=== PATIENT | female | born 1945 | race Caucasian/White ===

== ENCOUNTER → 2016-05-11 | Outpatient (CLI) | payer OTHER ==
[2015-05-22 12:56] VITALS: BP 115/63; PULSE 76
[~2016-05-11] MED LIST: AMLO5TAB4 PO; ANAS1TAB6 PO; BACL10TA PO; CITA40TA4 PO; CLX40 PO; CMD/25 PO; NITR100C41 PO; ONDA4TAB10 SL; PRLSR20 PO
[2016-05-11 13:02] VITALS: BP 132/72; PULSE 76; TEMP 37.1; O2SAT 99
--- NOTE | 2016-05-11 13:59 | Radiation Oncology Follow-Up ---
Radiation Oncology Follow-Up Date of Visit May 11, 2016. 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 The patient had undergone a mammography earlier this year and it was found to be abnormal back in April. The patient was seen by Dr. Peralta and evaluated. Needle cytology and core biopsy before had rendered a diagnosis of adenocarcinoma of the breast. She was taken to the operating room on July 02 and underwent lumpectomy and sentinel node procedure. The lumpectomy revealed a ductal invasive carcinoma that was 1.3 cm in maximal dimension. The tumor was low grade. The patient's tumor was strongly ER and UT positive. She was Her2/krzysztof equivocal initially and negative by FISH. Three sentinel lymph nodes were recovered, none of which were involved with tumor. She was pathologically staged T1cN0 stage I breast cancer. She was seen by medical oncology. We discussed hormonal therapy with the patient and have subsequently referred her here for her completion radiation. The patient understands her diagnosis and is happy with breast conserving therapy. She underwent radiation therapy utilizing hypo-fractionation. This was completed 10/02/2014 she received 5000 cGy. Interim History She had been on anastrozole. She made the decision to stop the medication on her own. She felt that it was attributing to her joint pain. She has a known history of degenerative disc disease. She has chronic lower back pain. She has hip pain. She was receiving physical therapy. She did not feel this was helping so she stopped going to physical therapy. She was unsure as to how long ago she stopped the medication. She had seen Dr. Blake in December and at that time was still on the medication. She is up-to-date on mammography. We reviewed that it was recommended that she have a bilateral screening mammogram in June. She was not sure as to whether the mammogram was currently scheduled. She's noticed no changes to her breast. Denies any pain or tenderness she has noted no masses. She's had no change of the axilla no swelling of her arm. Allergies Coded Allergies: Ketorolac (Verified Allergy, Severe, SOB, FACIAL SWELLING, 08/26/15) NSAIDs (Verified Allergy, Severe, swelling, 08/26/15) Sertraline (Verified Allergy, Intermediate, blister, 08/26/15) Tromethamine (Verified Allergy, Intermediate, HIVES, 08/26/15) Aspirin (Verified Allergy, Mild, 08/26/15) Codeine (Verified Allergy, Mild, 08/26/15) Diazepam (Verified Allergy, Mild, 08/26/15) Levofloxacin (Verified Allergy, Unknown, Unknown, 08/26/15) Morphine and Related (Verified Allergy, Unknown, Unknown, 08/26/15) Penicillins (Verified Allergy, Unknown, 08/26/15) Tramadol (Verified Allergy, Unknown, ABDOMINAL PAIN, 08/26/15) Acetaminophen (Unverified Adverse Reaction, Mild, 0, 08/26/15) hypotension, nausea Hydrocodone (Unverified Adverse Reaction, Mild, 0, 08/26/15) hypotension, nausea Home Medications Scheduled Amlodipine Besylate (Norvasc), 5 MG PO DAILY Baclofen (Lioresal), 10 MG PO BID Citalopram (Citalopram Hydrobromide), 20 MG PO DAILY Warfarin Sod (Coumadin), 5 MG PO WK Warfarin Sod (Coumadin), 2.5 MG PO 6XWK Review of Systems Gastrointestinal: Symptoms: WNL Oral: Symptoms: No Problems Other Oral Symptoms: Dysphagia Respiratory: Symptoms: WNL, Dry Cough Respiratory Comments: Has cough due to allergies Other Respiratory: Dry cough every once in awhile; Urinary: Symptoms: WNL Comments: nocturia 3-4-times Skin: Symptoms: No Problems Other Skin Symptoms: palm of left hand has some red streaks on it, and hand is getting stiff Breast: Right Upper Arm Measurement: 31.0 Right Mid Arm Measurement: 24.0 Right Wrist Measurement: 15.3 Left Upper Arm Measurement: 29.5 Left Mid Arm Measurement: 23.0 Left Wrist Measurement: 15.3 Arm Dominence: Right Patient Cosmetic Evaluation: Excellent Staff Cosmetic Evalaluation: Excellent Physical Exam Vital Signs Date Time Temp Pulse Resp B/P Pulse Ox O2 Delivery O2 Flow Rate FiO2 05/11/16 13:02 37.1 76 20 132/72 99 Pain: Pain Onset: last week Pain Duration: gets worse at times with bending then going to a standing position Side: Bilateral Pain Location: Back Patient Pain Scale: 0 - 10 Initial Pain Intensity: 10.0 Pain Description: Sharp Additional Comments: " goes from upper back all the way down to lower back " Fatigue: None General Appearance: no apparent distress Eyes: normal inspection, EOMI ENT: normal ENT inspection, hearing grossly normal Neck: no adenopathy Respiratory/Chest: lungs clear, no respiratory distress, no accessory muscle use Breast: Breast examination reveals well-healed incisions of the right breast. There are no masses or tenderness and no axillary adenopathy. Using the [place] score cosmesis she has an excellent outcome. There are no skin retractions or nipple changes. The left breast showed no masses or tenderness and no axillary adenopathy. Cardiovascular: regular rate, rhythm, no gallop, no murmur Abdomen: non tender, soft Neurologic/Psychiatric: no motor/sensory deficits, alert, normal mood/affect Skin: warm/dry Lymphatic: no adenopathy Additional Studies She had a mammogram 01/05/2016. This was a right breast mammogram. Impression : Benign, no evidence of malignancy. Follow-up screening mammogram of both breasts is suggested in 6 months. BI-RADS Category 2 Assessment & Plan Plan: Her schedule was checked and she did not have a mammogram scheduled. Bilateral screening mammography was scheduled for the third week of June. She' ll continue regular follow-up with Dr. Blake. Continue follow-up with her primary care provider. She made the decision to discontinue the anastrozole. She can discuss that with Dr. Blake at her next visit. We asked her to return to our office in 1 year. She may call if she has any questions or concerns. Total Time In Follow-Up I spent 20 minutes speaking to the patient and performing examination. I spent 10 minutes reviewing her for information in completing this note. Copy To Oneil Tello III, M.D.; Tray Blake M.D.
== END | disposition home or self-care (01) ==
LOC: C.ONC 12:06
PROVIDERS: ATTEND Radiology Radiation Oncology
DX: Z08 Encounter for follow-up examination after completed treatment for malignant neoplasm (principal); Z92.3 Personal history of irradiation; Z85.3 Personal history of malignant neoplasm of breast

== ENCOUNTER 2017-01-05 08:40 | Emergency (ER) | payer OTHER ==
[~2017-01-05] VITALS: Ht 162.6 cm; Wt 65.5 kg
[~2017-01-05 08:40] MED LIST changes: -ANAS1TAB6 PO; -CLX40 PO; -NITR100C41 PO; -ONDA4TAB10 SL; -PRLSR20 PO
[2017-01-05 09:04] VITALS: TEMP 36.6; Ht 162.6 cm; Wt 65.5 kg
[2017-01-05 09:34] LABS: URINE APPEARANCE CLEAR (CLEAR); URINE BILIRUBIN NEG (NEG); URINE COLOR YELLOW; URINE EPITHELIAL CELL AUTO >30 /lpf (0-5); URINE NITRITE NEG (NEG); URINE PH 8.5 (4.5-7.5); URINE SPECIFIC GRAVITY 1.009 (1.000-1.030); UROBILINOGEN NEG (NEG); ZZUR CULT IF INDIC CLEAN CATCH NO
[2017-01-05 09:35] LABS: MANUAL MICROSCOPIC REQUIRED? NO; REVIEW REQ? NO
[2017-01-05 09:48] LABS: HEMATOCRIT 38.9 % (37-47); MEAN CELL VOLUME 87.4 fL (80-100); MEAN CORPUSCULAR HEMOGLOBIN 29.2 pg (25-34); MEAN CORPUSCULAR HGB CONC 33.4 g/dl (32-36); MEAN PLATELET VOLUME 10.6 fL (7.4-10.4); PLATELET COUNT 240 K/uL (130-400); RED BLOOD COUNT 4.45 M/uL (4.2-5.4); WHITE BLOOD COUNT 4.57 K/uL (4.8-10.8)
[2017-01-05 10:04] LABS: BUN/CREATININE RATIO 10.3 (10-20); CALCIUM 8.8 mg/dl (8.5-10.1); CREATININE 0.65 mg/dl (0.60-1.20); POTASSIUM 3.8 mmol/L (3.5-5.1)
[2017-01-05] MEDS ORDERED: ONDANSETRON INJ 2 MG/ML 2 ML VIAL IV STA (10:16)
[2017-01-05] MEDS ORDERED: FENTANYL CITRATE INJ 50 MCG/1 ML 2 ML VIAL IV ONE (10:30)
[2017-01-05 10:31] LABS: ALKALINE PHOSPHATASE 76 U/L (45-117); ALT/SGPT 15 U/L (12-78); AST/SGOT 18 U/L (15-37)
--- NOTE | 2017-01-05 10:37 | EMERGENCY ROOM VISIT NOTE ---
History Report prepared by Kelly: Rosaura Moore Under the Supervision of: Dr. En Knight M.D. First contact with patient: 09:31 Chief Complaint: FLANK PAIN Stated Complaint: BACK PAIN, STOMACH PAIN History of Present Illness The patient is a 71 year old white female with a past medical history of hypertension, factor V Leiden, breast cancer who presents to the ED with a cc of persistent sharp aching lower back pain beginning 3-4 days ago. Positive abdominal pain, dysuria, nausea, fever, chills, knee pain. Negative hematuria, drainage, vomiting, chest pain, SOB, unintended weight loss. Patient denies fall , trauma, change in activity, heavy lifting. No alcohol, tobacco, drug use. No sick contacts. She had a normal BM yesterday. Source of History: patient Onset: 3-4 days ago Position: back (lower) Quality: ache, sharp Timing: other (persistent) Associated Symptoms: + fevers, + chills, + nausea, + abdominal pain, + urinary symptoms, No chest pain, No SOB, No vomiting Review of Systems See HPI for pertinent positives and negatives. A total of ten systems were reviewed and were otherwise negative. Past Medical & Surgical Medical Problems: (1) Breast cancer (2) Chronic obstructive lung disease (3) COPD (chronic obstructive pulmonary disease) (4) CVA (cerebral vascular accident) (5) Factor V Leiden (6) Gastroesophageal reflux disease (7) History of pulmonary embolism (8) History of TIA (transient ischemic attack) (9) HTN (hypertension) (10) Migraine (11) PRIMARY HYPERCOAGULABLE STATE (12) Pulmonary embolism (13) Scoliosis Surgical Problems: (1) Status post cataract extraction (2) Status post cholecystectomy (3) Status post tubal ligation Family History Cancer Gallbladder disease Hypertension Lung disease Social History Smoking Status: Former Smoker Alcohol Use: none Drug Use: none Marital Status: Housing Status: lives with family Occupation Status: retired Current/Historical Medications Scheduled Amlodipine Besylate (Norvasc), 5 MG PO QAM Citalopram (Citalopram Hydrobromide), 20 MG PO QAM Nitrofurantoin Macrocrystal (Nitrofurantoin), 1 TAB PO BID Ondasetron Odt (Zofran Odt), 4 MG SL Q6H Warfarin Sod (Coumadin), 5 MG PO WK Warfarin Sod (Coumadin), 2.5 MG PO 6XWK Scheduled PRN Baclofen (Lioresal), 10 MG PO BID PRN for Muscle Spasms Allergies Coded Allergies: Ketorolac (Verified Allergy, Severe, SOB, FACIAL SWELLING, 01/05/17) NSAIDs (Verified Allergy, Severe, swelling, 01/05/17) Sertraline (Verified Allergy, Intermediate, blister, 01/05/17) Tromethamine (Verified Allergy, Intermediate, HIVES, 01/05/17) Aspirin (Verified Allergy, Mild, 01/05/17) Codeine (Verified Allergy, Mild, 01/05/17) Diazepam (Verified Allergy, Mild, 01/05/17) Levofloxacin (Verified Allergy, Unknown, Unknown, 01/05/17) Morphine and Related (Verified Allergy, Unknown, Unknown, 01/05/17) Penicillins (Verified Allergy, Unknown, 01/05/17) Tramadol (Verified Allergy, Unknown, ABDOMINAL PAIN, 01/05/17) Acetaminophen (Unverified Adverse Reaction, Mild, 0, 01/05/17) hypotension, nausea Hydrocodone (Unverified Adverse Reaction, Mild, 0, 01/05/17) hypotension, nausea Physical Exam Vital Signs Date Time Temp Pulse Resp B/P (MAP) Pulse Ox O2 Delivery O2 Flow Rate FiO2 01/05/17 11:28 67 20 130/56 99 Room Air 01/05/17 10:30 66 20 132/63 97 Room Air 01/05/17 09:34 64 20 122/64 99 Room Air 01/05/17 09:04 36.6 69 16 151/70 100 Room Air Physical Exam GENERAL: Awake, alert, appears older than stated age, NAD HENT: Normocephalic, atraumatic. Edentulous. EYES: Normal conjunctiva. Sclera non-icteric. NECK: Supple. No nuchal rigidity. FROM. RESPIRATORY: CTAB, no rhonchi, wheezing, crackles CARDIAC: RRR, no MRG ABDOMEN: Soft, mild diffuse abdominal TTP greatest in the suprapubic region, negative Nair's sign, negative obturators, negative psoas, BS+ MSK: No chest wall TTP, no LE edema. Mild low back pain. No step off, redness, or fluctuance. Negative SLR b/l. NEURO: GCS 15, CN 2-12 intact, moves all 4s on command SKIN: No rash or jaundice noted. Medical Decision & Procedures Laboratory Results 01/05/17 09:17 01/05/17 09:17 Test 01/05/17 09:02 01/05/17 09:17 Urine Color YELLOW Urine Appearance CLEAR (CLEAR) Urine pH 8.5 (4.5-7.5) Urine Specific [place] 1.009 (1.000-1.030) Urine Protein NEG (NEG) Urine Glucose (UA) NEG (NEG) Urine Ketones NEG (NEG) Urine Occult Blood NEG (NEG) Urine Nitrite NEG (NEG) Urine Bilirubin NEG (NEG) Urine Urobilinogen NEG (NEG) Urine Leukocyte Esterase MODERATE (NEG) Urine WBC (Auto) 5-10 /hpf (0-5) Urine RBC (Auto) 0-4 /hpf (0-4) Urine Hyaline Casts (Auto) 1-5 /lpf (0-5) Urine Epithelial Cells (Auto) >30 /lpf (0-5) Urine Bacteria (Auto) NEG (NEG) Red Blood Count 4.45 M/uL (4.2-5.4) Mean Corpuscular Volume 87.4 fL (80-100) Mean Corpuscular Hemoglobin 29.2 pg (25-34) Mean Corpuscular Hemoglobin Concent 33.4 g/dl (32-36) RDW Standard Deviation 47.8 fL (36.4-46.3) RDW Coefficient of Variation 14.8 % (11.5-14.5) Mean Platelet Volume 10.6 fL (7.4-10.4) Prothrombin Time 15.6 SECONDS (9.0-12.0) Prothromb Time International Ratio 1.4 (0.9-1.1) Activated Partial Thromboplast Time 34.7 SECONDS (21.0-31.0) Partial Thromboplastin Ratio 1.3 Anion Gap 3.0 mmol/L (3-11) Est Creatinine Clear Calc Drug Dose 67.6 ml/min Estimated GFR () 102.8 Estimated GFR (Non- 88.7 BUN/Creatinine Ratio 10.3 (10-20) Calcium Level 8.8 mg/dl (8.5-10.1) Total Bilirubin 0.4 mg/dl (0.2-1) Direct Bilirubin < 0.1 mg/dl (0-0.2) Aspartate Amino Transf (AST/SGOT) 18 U/L (15-37) Alanine Aminotransferase (ALT/SGPT) 15 U/L (12-78) Alkaline Phosphatase 76 U/L (45-117) Troponin I < 0.015 ng/ml (0-0.045) Total Protein 6.8 gm/dl (6.4-8.2) Albumin 3.4 gm/dl (3.4-5.0) Lipase 179 U/L (73-393) Laboratory results reviewed by me Medications Administered Medications (Trade) Dose Ordered Sig/Jeannine Route Start Time Stop Time Status Last Admin Dose Admin Ondansetron HCl (Zofran Inj) 4 mg NOW STAT IV 01/05/17 10:16 01/05/17 10:18 DC 01/05/17 10:35 4 MG Fentanyl Citrate (Fentanyl Inj) 50 mcg NOW ONCE IV 01/05/17 10:30 01/05/17 10:31 DC 01/05/17 10:35 50 MCG Ceftriaxone Sodium (Rocephin Inj) 1 gm NOW STAT IV 01/05/17 11:00 01/05/17 11:01 DC 01/05/17 11:28 1 GM ECG Indication: abdominal pain Rate (beats per minute): 66 Rhythm: normal sinus Findings: Q waves (Anterior), other (QRS 0.12, no Sgarbossa criteria met) Comparison ECG Date: 26-Aug-2015 Change: no significant change ED Course 0941: The patient was evaluated in room B5. A complete history and physical exam was performed. 1119: I reevaluated the patient. I discussed results and discharge instructions : she verbalized understanding and agreement. The patient is ready for discharge. Medical Decision Differential diagnosis: Etiologies such as appendicitis, diverticulitis, PUD, biliary pathology, UTI, pancreatitis, obstruction, mesenteric ischemia, aortic pathology, infections, inflammatory bowel disease, renal colic, as well as others were entertained. The patient is a 71 year old white female with a past medical history of hypertension, factor V Leiden, breast cancer who presents to the ED with a cc of persistent sharp aching lower back pain beginning 3-4 days ago. Patient was seen and evaluated the bedside. Patient has a history of hypertension and factor V and is on Coumadin. Patient's blood work was fairly unremarkable. White count of 4 LFTs and lipase within normal limits. Patient' s pain and nausea improved. Patient did have an EKG with old anterior Q waves but no acute changes. Troponin negative. He was told to follow-up with her PCP as well as a possible school psychometrist given the EKG findings which are chronic. Patient's pain and nausea improved. Patient was told that her INR was 1.4 and subtherapeutic. Patient's UA was consistent with a likely urinary tract infection given the patient's history and physical. Patient was given Rocephin. Patient was given antibiotics. Patient was given strict follow-up, discharge, and return precautions and was discharged home. Medication Reconcilliation Current Medication List: was personally reviewed by me Blood Pressure Screening Patient's blood pressure: Normal blood pressure Blood pressure disposition: Did not require urgent referral Impression Primary Impression: Urinary tract infection Scribe Attestation The scribe's documentation has been prepared under my direction and personally reviewed by me in its entirety. I confirm that the note above accurately reflects all work, treatment, procedures, and medical decision making performed by me. Departure Information Dispostion Home / Self-Care Prescriptions Ondasetron Odt (ZOFRAN ODT) 4 Mg Tab 4 MG SL Q6H for Nausea, #6 TAB Prov: En Kngiht M.D. 01/05/17 Nitrofurantoin Macrocrystal (NITROFURANTOIN) 100 Mg Cap 1 TAB PO BID for 7 Days, #14 TAB Prov: En Knight M.D. 01/05/17 Referrals Oneil Tello III, M.D. (PCP) Patient Instructions Coumadin, ED UTI Cystitis Female, [facility] Additional Instructions Please return to the emergency department if you have worsening or recurrent symptoms not amenable to at-home treatment. Please call for a follow-up appointment with her primary care physician. Please take your medications as prescribed. If you have other concerns and/or complaints please feel free to also call your primary care physician's office or return the ED for further evaluation, management, and treatment. Please return to the emergency department if you have worsening or recurrent symptoms not amenable to at-home treatment. Please call for a follow-up appointment with her primary care physician. Please take your medications as prescribed. If you have other concerns and/or complaints please feel free to also call your primary care physician's office or return the ED for further evaluation, management, and treatment. Your INR was 1.4 today which is low. Please take an extra 2.5mg tab today and follow up w/ your PCP. You received narcotic or benzodiazepene medication while in the emergency room today. This is an addictive medication that may cause drowziness as well as constipation. Do not drive, operate heavy machinery, or drink alcohol under the influence of this medication. You may take 600 mg Ibuprofen every 6 hours as needed for pain with food for no more than 2 consecutive days. You may take tylenol 1000mg every 6 hours as needed for pain. You may take motrin and tylenol separately or at the same time. Take your antibiotics as prescribed. You may use a probiotic and/or yogurt to help replenish healthy gut bacteria. You have been examined and treated today on an emergency basis only. This is not a substitute for, or an effort to provide, complete comprehensive medical care. It is impossible to recognize and treat all injuries or illnesses in a single emergency department visit. It is therefore important that you follow up closely with [facility]. Call as soon as possible for an appointment. Thank you for your time and consideration. I look forward to speaking with you again soon. Please don't hesitate to call us if you have any questions. Problem Qualifiers Primary Impression: Urinary tract infection Urinary tract infection type: acute cystitis Hematuria presence: without hematuria Qualified Codes: N30.00 - Acute cystitis without hematuria
[2017-01-05 10:55] LABS: INR 1.4 (0.9-1.1); PARTIAL THROMBOPLASTIN RATIO 1.3; PROTHROMBIN TIME (PATIENT) 15.6 SECONDS (9.0-12.0)
[2017-01-05] MEDS ORDERED: CEFTRIAXONE SOD INJ 1 GM ADDVIAL IV STA (11:00)
[2017-01-05] MEDS ORDERED: ONDA4TAB10 SL (11:49)
[2017-01-05] MEDS ORDERED: NITR100C41 PO (11:49)
[2017-01-05 12:15] VITALS: BP 133/78; PULSE 72; O2SAT 99
--- NOTE | 2017-01-05 14:22 | Pharmacy Progress Note ---
ED Pharmacist Progress Note Date of Service: Jan 05, 2017. Received phone call from pharmacist, Devora, at [facility]. [facility] ED wanted to know if Rx for nitrofurantoin should have been for Macrobid rather than the Macrodantin formulation. I confirmed w/ Dr Knight the Rx is for Macrobid 100mg BID and relayed the info to [facility].
== END 2017-01-05 12:17 | disposition home or self-care (01) ==
LOC: C.EDB 08:45
DX: N39.0 Urinary tract infection, site not specified (principal); I10 Essential (primary) hypertension; D68.51 Activated protein C resistance; K21.9 Gastro-esophageal reflux disease without esophagitis; J44.9 Chronic obstructive pulmonary disease, unspecified; Z86.711 Personal history of pulmonary embolism; Z86.73 Personal history of transient ischemic attack (TIA), and cerebral infarction without residual deficits; Z85.3 Personal history of malignant neoplasm of breast; Z98.51 Tubal ligation status; Z90.49 Acquired absence of other specified parts of digestive tract; Z98.49 Cataract extraction status, unspecified eye; Z87.891 Personal history of nicotine dependence; Z79.01 Long term (current) use of anticoagulants; Z79.899 Other long term (current) drug therapy; Z88.0 Allergy status to penicillin; Z88.5 Allergy status to narcotic agent; Z88.6 Allergy status to analgesic agent; Z88.8 Allergy status to other drugs, medicaments and biological substances; Z80.9 Family history of malignant neoplasm, unspecified; Z83.79 Family history of other diseases of the digestive system; Z82.49 Family history of ischemic heart disease and other diseases of the circulatory system

== ENCOUNTER → 2017-04-26 | Day surgery (SDC) | payer OTHER ==
[2017-03-24 15:21] VITALS: Ht 162.6 cm; Wt 63.6 kg
[~2017-04-26] VITALS: Ht 162.6 cm; Wt 63.6 kg
[~2017-04-26] MED LIST changes: +500ML BSS 0.3ML EPI 1:1000PF IRRIG ONE; +ACETAMINOPHEN 325 MG TAB PO PRN; +ADVIN10050 INH; +AMLO2.5T PO; -AMLO5TAB4 PO; +AMVISC PLUS 0.8ML SYRINGE INT OCU ONE; +ATROPINE SULFATE 0.1 MG/ML 5ML SYR IV PRN; -BACL10TA PO; +BSS FLUSH ONE; +EpHEDrine SULFATE INJ 50 MG/ML AMP IV PRN; +EpINEphrine INJ 1MG/ML AMP 1 MG/ML AMP ONE; +FENTANYL CITRATE INJ 50 MCG/1 ML 2 ML VIAL ONE; +FLUT1INH14 PO; +LACTATED RINGER'S 1000ML 500 ML IV SCH; +LIDOCAINE 3.5% OPH GEL PER APPLICATION CHARGE ONE; +LIDOCAINE HCL 1% MPF 2 ML VIAL ONE; +MIDAZOLAM HCL 1 MG/ML 2ML VIAL ONE; +NURSING DECISION MEDICATION ORDER SCH; +OCUCOAT 1 ML SOLN IO ONE; +POVIDONE-IODINE OP SOLN 30 ML BTL ONE; +PROPARACAINE 0.5% OP SOLN PER DROP CHARGE OPR SCH; +SULF800T23 PO; +TOBRAMYCIN/DEXAMETHASONE OPH OINT PER APPLN CHARGE ONE; +ZNT/150 PO
[2017-04-26] MEDS: PHENYLEPHRINE HCL 2.5% OP SOLN PER DROP CHARGE OPR SCH ×2 (10:24→10:29)
[2017-04-26] MEDS: TROPICAMIDE 1% OP SOLN PER DROP CHARGE OPR SCH ×2 (10:25→10:30)
[2017-04-26] MEDS: CYCLOPENTOLATE HCL 1% OP SOLN PER DROP CHARGE OPR SCH ×2 (10:26→10:31)
[2017-04-26] MEDS: GATIFLOXACIN OP SOLN PER DROP CHARGE OPR SCH ×2 (10:27→10:37)
[2017-04-26] MEDS: KETOROLAC 0.5% OP SOLN PER DROP CHARGE OPR SCH ×2 (10:34→10:35)
--- NOTE | 2017-04-26 11:00 | History & Physical Bridge - SC ---
H&P Re-Evaluation Bridge Note: I have examined the patient, reviewed the History & Physical and in the interval since the performance of the History & Physical I have noted the following changes of clinical significance: No changes noted
--- NOTE | 2017-04-26 11:34 | Discharge Instructions-SurgCtr ---
Discharge Instructions Date of Service Apr 26, 2017. Visit Reason for Visit: Cataract Right Eye Discharge Discharge Diagnosis / Problem: cataract Discharge Goals Goal(s): Improve function Activity Recommendations Activity Limitations: per Instructions/Follow-up section Anesthesia . Post Anesthesia Instructions: If you have had General Anesthesia or IV Sedation: * Do not drive today. * Resume driving when surgeon permits. * Do not make important decisions or sign legal documents today. * Call surgeon for: 1. Temperature elevations greater than 101 degrees F. 2. Uncontrollable pain. 3. Excessive bleeding. 4. Persistent nausea and vomiting. 5. Medication intolerance (nausea, vomiting or rash). * For nausea and vomiting use only clear liquids such as: tea, soda, bouillon until nausea subsides, then gradually increase diet as tolerated. * If you have any concerns or questions, call your surgeon's office. If physician is unavailable and it is an emergency, call 911 or go to the nearest emergency room. . Diet Recommendations Home Diet: resume previous diet Procedures Procedures Performed: Right Cataract Phacoemulsification With Intraocular Lens Pending Studies Studies pending at discharge: no Medical Emergencies . Who to Call and When: Medical Emergencies: If at any time you feel your situation is an emergency, please call 911 immediately. . Non-Emergent Contact Non-Emergency issues call your: Claim Investigator . . "Provider Documentation" section prepared by Bobby Delatorre. .
--- NOTE | 2017-04-26 11:35 | [facility] Operative Report ---
Operative Report Date of Service Apr 26, 2017. Operative Report 1. PREOPERATIVE DIAGNOSIS: Cataract of the right eye. 2. POSTOPERATIVE DIAGNOSIS: Same. 3. PROCEDURE: Phacoemulsification with intraocular lens implantation of the right eye. SURGEON: Dr. Bobby Delatorre. ANESTHESIA: Topical Lidocaine gel, 1% Non- Preserved intracameral Lidocaine, and monitored intravenous sedation. INDICATIONS FOR THE PROCEDURE: The patient is a 71 - year-old female with a history of cataract of the right eye causing significant visual impairment. The details of the proposed procedure were explained to the patient who asked appropriate questions and following discussion of all risks, benefits and alternatives agreed to have the procedure done. 4. OPERATION AND FINDINGS: DESCRIPTION OF PROCEDURE: After informed consent was obtained, the patient was brought to the Operating Room at the [facility]. The patient was placed in a supine position and then the right eye was prepped and draped in the usual sterile fashion for intraocular surgery. A drop of topical Lidocaine gel was placed in the operative eye. A wire lid speculum was then placed in the fornices. A corneal paracentesis was then created temporally. The Non-Preserved Lidocaine was then instilled into the anterior chamber. The anterior chamber was then pressurized with viscoelastic. A 2.0 mm clear corneal incision was then created temporally. A cystotome was inserted into the anterior chamber and used to create a tear in the anterior lens capsule. This capsular tear was then used to create a small flap and the flap was dragged in a counterclockwise direction in order to create a continuous curvilinear capsulorrhexis. Hydrodissection was accomplished with balanced salt solution. Phacoemulsification of the lens nucleus was then performed in a standard adivoa-hry-rvwarew technique. The phaco time was 18 seconds with an average power of 12 %. The remaining cortical material was removed using irrigation aspiration. The capsular bag was then filled with viscoelastic. A [employer] MI60L +24.0 diopters lens was then loaded into the injector and injected into the capsular bag. The remaining viscoelastic was removed with the irrigation aspiration handpiece. The wound was hydrated and then checked and found to be watertight. The intraocular pressure was checked and found to be adequate. The wire lid speculum was removed and the patient's face was cleaned and dried. TobraDex ointment was placed in the inferior fornix. The patient was discharged to the Recovery Room having tolerated the procedure well. There were no complications. The patient will be seen tomorrow in the office for follow-up. I attest to the content of the Intraoperative Record and any orders documented therein. Any exceptions are noted below.
--- NOTE | 2017-04-26 11:48 | Anesthesiology Progress Note ---
Anesthesia Post Op Note Date & Time Apr 26, 2017 at 11:48 Vital Signs Pain Intensity: 0 Vital Signs Past 12 Hours Date Time Temp Pulse Resp B/P (MAP) Pulse Ox O2 Delivery O2 Flow Rate FiO2 04/26/17 11:44 36.7 61 16 143/72 (95) 100 Room Air 04/26/17 10:13 36.5 63 22 137/75 (95) 100 Room Air Notes Mental Status: alert / awake / arousable, participated in evaluation Nausea / Vomiting: adequately controlled Pain: adequately controlled Airway Patency, RR, SpO2: stable & adequate BP & HR: stable & adequate Hydration State: stable & adequate Anesthetic Complications: no major complications apparent
[2017-04-26 12:07] VITALS: BP 147/63; PULSE 56; TEMP 36.6; O2SAT 100
== END | disposition home or self-care (01) ==
LOC: X.SURG 09:18
PROVIDERS: ATTEND Ophthalmology
DX: H26.9 Unspecified cataract (principal); D68.51 Activated protein C resistance; K21.9 Gastro-esophageal reflux disease without esophagitis; F41.9 Anxiety disorder, unspecified; Z86.73 Personal history of transient ischemic attack (TIA), and cerebral infarction without residual deficits; Z85.3 Personal history of malignant neoplasm of breast; Z87.891 Personal history of nicotine dependence; Z79.899 Other long term (current) drug therapy

== ENCOUNTER 2017-11-21 07:50 | Emergency (ER) | payer OTHER ==
[~2017-11-21] VITALS: Ht 162.6 cm; Wt 64.5 kg
[~2017-11-21 07:50] MED LIST changes: -500ML BSS 0.3ML EPI 1:1000PF IRRIG ONE; -ACETAMINOPHEN 325 MG TAB PO PRN; -AMVISC PLUS 0.8ML SYRINGE INT OCU ONE; -ATROPINE SULFATE 0.1 MG/ML 5ML SYR IV PRN; -BSS FLUSH ONE; -EpHEDrine SULFATE INJ 50 MG/ML AMP IV PRN; -EpINEphrine INJ 1MG/ML AMP 1 MG/ML AMP ONE; -FENTANYL CITRATE INJ 50 MCG/1 ML 2 ML VIAL ONE; -FLUT1INH14 PO; -LACTATED RINGER'S 1000ML 500 ML IV SCH; -LIDOCAINE 3.5% OPH GEL PER APPLICATION CHARGE ONE; -LIDOCAINE HCL 1% MPF 2 ML VIAL ONE; -MIDAZOLAM HCL 1 MG/ML 2ML VIAL ONE; -NURSING DECISION MEDICATION ORDER SCH; -OCUCOAT 1 ML SOLN IO ONE; -POVIDONE-IODINE OP SOLN 30 ML BTL ONE; -PROPARACAINE 0.5% OP SOLN PER DROP CHARGE OPR SCH; -SULF800T23 PO; -TOBRAMYCIN/DEXAMETHASONE OPH OINT PER APPLN CHARGE ONE
[2017-11-21 08:02] VITALS: TEMP 36.5; Ht 162.6 cm; Wt 64.5 kg
[2017-11-21 08:15] VITALS: O2SAT 99
[2017-11-21] MEDS ORDERED: ACETAMINOPHEN 500 MG TAB PO STA (08:44)
[2017-11-21] MEDS ORDERED: ONDANSETRON INJ 2 MG/ML 2 ML VIAL IV STA (08:44)
[2017-11-21] MEDS ORDERED: SODIUM CHLORIDE 0.9% 1000ML 1,000 ML IV STA (08:44)
[2017-11-21] MEDS ORDERED: FLUT1INH14 PO (08:55)
[2017-11-21 08:57] LABS: BASO % 0.8 %; BASO ABS # 0.04 K/uL (0-0.2); EOS % 5.2 %; EOS ABS # 0.26 K/uL (0-0.5); HEMOGLOBIN 13.1 g/dL (12.0-16.0); IG# 0.01 K/uL (0.00-0.02); LYMPH % 25.2 %; LYMPH ABS # 1.25 K/uL (1.2-3.4); MEAN CELL VOLUME 87.9 fL (80-100); MEAN CORPUSCULAR HEMOGLOBIN 28.8 pg (25-34); MEAN CORPUSCULAR HGB CONC 32.8 g/dl (32-36); MEAN PLATELET VOLUME 10.7 fL (7.4-10.4); MONO % 10.9 %; MONO ABS # 0.54 K/uL (0.11-0.59); NEUT % 57.7 %; NEUT ABS # 2.87 K/uL (1.4-6.5); PLATELET COUNT 267 K/uL (130-400); RED CELL DISTRIBUTION WIDTH CV 14.7 % (11.5-14.5); RED CELL DISTRIBUTION WIDTH SD 47.3 fL (36.4-46.3); WHITE BLOOD COUNT 4.97 K/uL (4.8-10.8)
[2017-11-21 09:08] LABS: ALBUMIN 3.4 gm/dl (3.4-5.0); CALCIUM 8.7 mg/dl (8.5-10.1); CREATININE 0.69 mg/dl (0.60-1.20); POTASSIUM 3.5 mmol/L (3.5-5.1)
[2017-11-21 09:17] LABS: INR 1.9 (0.9-1.1); PTT PATIENT 40.1 SECONDS (21.0-31.0)
--- NOTE | 2017-11-21 09:18 | DIAGNOSTIC IMAGING REPORT ---
CHEST ONE VIEW PORTABLE HISTORY: 72 years-old Female ABDOMINAL PAIN/GI acute atypical chest pain with acute generalized abdominal pain COMPARISON: Chest radiograph 08/26/2015 TECHNIQUE: Portable AP view of the chest FINDINGS: The cardiomediastinal and hilar silhouettes are within normal limits. The patient is slightly rotated to the right. Mild chronic interstitial coarsening with bibasilar pleural-parenchymal scarring. Opacity of the right lung apex appears unchanged suggesting a combination of scarring with pleural thickening. No pneumothorax, pleural effusion or overt pulmonary edema. Degenerative changes of the shoulders and spine. IMPRESSION: 1. No acute process. 2. Redemonstration of biapical pleural-parenchymal scarring with probable pleural thickening about the right lung apex, unchanged from 08/26/2015 The above report was generated using voice recognition software. It may contain grammatical, syntax or spelling errors. Electronically signed by: Troy Dolan M.D. 11/21/2017 9:16 AM Dictated Date/Time: 11/21/2017 9:13 AM
[2017-11-21] MEDS ORDERED: OPTIRAY 320 IV PRN (09:30)
--- NOTE | 2017-11-21 11:21 | DIAGNOSTIC IMAGING REPORT ---
ABDOMEN AND PELVIS CT WITH IV AND ORAL CONTRAST CT DOSE: 303.35 mGy.cm HISTORY: Acute generalized abdominal pain ABDOMINAL PAIN/GI TECHNIQUE: Multiaxial CT images of the abdomen and pelvis were performed following the use of intravenous and oral contrast. A dose lowering technique was utilized adhering to the principles of ALARA. COMPARISON STUDY: CT abdomen and pelvis 02/10/2016. FINDINGS: Mild subsegmental bibasilar atelectasis. There is no pneumatosis or pneumoperitoneum identified. Imaged inferior cardiac chambers are unremarkable. Prior cholecystectomy. Intrahepatic and extrahepatic biliary ductal dilation appears unchanged from prior study and is likely on a postsurgical basis with the common bile duct measuring up to 10 mm transversely. No obstructing biliary mass or stone identified. The liver otherwise appears unremarkable. Patent portal vein. Spleen, pancreas and adrenal glands are unremarkable. Kidneys, ureters and bladder are within normal limits. Coarse 7 mm calcification about the left mid uterine body. No adnexal mass lesions. Moderate mixed plaquing about the aorta without aneurysm. The IVC is unremarkable. There are no pathologically enlarged lymph nodes identified. There is no bowel obstruction or focal bowel wall thickening identified. Colonic diverticulosis without evidence of acute diverticulitis. Terminal ileum appears normal. Appendix is not definitively seen. No secondary signs to suggest acute appendicitis. No ascites or mesenteric inflammatory changes. Soft tissues appear to be within normal limits. Subcutaneous granulomata about the left gluteal tissues. Moderately demineralized appearance of the bones. Multilevel spondylitic spurring and facet arthropathy with intervertebral disc space narrowing. IMPRESSION: 1. No acute intra-abdominal or intrapelvic abnormality identified. 2. Colonic diverticulosis without diverticulitis. 3. Prior cholecystectomy with unchanged likely physiologic postsurgical intrahepatic and extrahepatic biliary ductal dilation. Electronically signed by: Troy Dolan M.D. 11/21/2017 11:19 AM Dictated Date/Time: 11/21/2017 11:13 AM
[2017-11-21] MEDS ORDERED: CEFTRIAXONE SOD INJ 1 GM ADDVIAL IV STA (11:39)
[2017-11-21] MEDS ORDERED: SULF800T23 PO (13:05)
--- NOTE | 2017-11-21 13:06 | EMERGENCY ROOM VISIT NOTE ---
History Report prepared by Kelly: Phu Torres Under the Supervision of: Dr. Jason Fields D.O. First contact with patient: 08:38 Chief Complaint: ABDOMINAL PAIN Stated Complaint: TUMMY HURTS, LEG HURT Nursing Triage Summary: last night pt reports severe right sided abd pain fever, nausea today nausea is gone no diarrhea pain continues pt also c/o knee pain thinks may be related to weather History of Present Illness The patient is a 72 year old female who presents to the Emergency Room with complaints of constant abdominal pain that began on Tuesday night, 2 nights ago. The patient states that the pain originally started severe in her right lower quadrant, but moved to her left lower quadrant this morning. She was nauseous over the weekend, but this has resolved at this time. She has had a cholecystectomy in the past. Source of History: patient Onset: Two night ago Position: abdomen (RLQ, LLQ) Symptom Intensity: severe Timing: constant Associated Symptoms: + nausea Review of Systems See HPI for pertinent positives & negatives. A total of 10 systems reviewed and were otherwise negative. Past Medical & Surgical Medical Problems: (1) Breast cancer (2) Chronic obstructive lung disease (3) COPD (chronic obstructive pulmonary disease) (4) CVA (cerebral vascular accident) (5) Factor V Leiden (6) Gastroesophageal reflux disease (7) History of pulmonary embolism (8) History of TIA (transient ischemic attack) (9) HTN (hypertension) (10) Migraine (11) PRIMARY HYPERCOAGULABLE STATE (12) Pulmonary embolism (13) Scoliosis Surgical Problems: (1) Status post cataract extraction (2) Status post cholecystectomy (3) Status post tubal ligation Family History Cancer Gallbladder disease Hypertension Lung disease Social History Smoking Status: Former Smoker Alcohol Use: none Drug Use: none Marital Status: Housing Status: lives with family Occupation Status: retired Current/Historical Medications Scheduled Amlodipine (Norvasc), 2.5 MG PO QAM Citalopram (Citalopram Hydrobromide), 40 MG PO QAM Fluticasone-Salmeterol (Airduo Respiclick 113/14 113-14 Mcg/Act), 1 INHA PO DAILY Sulfa/Trimethoprim (Bactrim Ds 800MG/160MG), 1 TAB PO BID Warfarin Sod (Coumadin), 5 MG PO WK Warfarin Sod (Coumadin), 2.5 MG PO [id number] Allergies Coded Allergies: Ketorolac (Verified Allergy, Severe, SOB, FACIAL SWELLING, 11/21/17) Levofloxacin (Verified Allergy, Intermediate, THROAT SWELLING, NAUSEA, ) Penicillins (Verified Allergy, Intermediate, RASH WITH BLISTERS, 11/21/17) Sertraline (Verified Allergy, Intermediate, blister, 11/21/17) Tromethamine (Verified Allergy, Intermediate, HIVES, 11/21/17) Codeine (Verified Allergy, Mild, STOMACH BLEEDING, 11/21/17) Tramadol (Verified Allergy, Unknown, muscle cramping, 04/26/17) Diazepam (Verified Adverse Reaction, Intermediate, SEIZURES, 04/26/17) Aspirin (Verified Adverse Reaction, Mild, TOLD NOT TO TAKE-ON COUMADIN, 04/26/17) Morphine and Related (Verified Adverse Reaction, Mild, GI SYMPTOMS, 04/26/17 ) NSAIDs (Verified Adverse Reaction, Mild, TOLD NOT TAKE-ON COUMADIN, 04/26/17 ) Physical Exam Vital Signs Date Time Temp Pulse Resp B/P (MAP) Pulse Ox O2 Delivery O2 Flow Rate FiO2 11/21/17 13:08 63 18 147/59 99 Room Air 11/21/17 11:34 65 18 135/60 99 Room Air 11/21/17 10:54 66 18 146/75 97 Room Air 11/21/17 09:26 65 16 110/68 100 Room Air 11/21/17 08:56 69 11/21/17 08:15 99 Room Air 11/21/17 08:02 36.5 77 20 102/67 98 Room Air Physical Exam CONSTITUTIONAL/VITAL SIGNS: Reviewed / noted above. GENERAL: Non-toxic in appearance. INTEGUMENTARY: Warm, dry, and [place]. HEAD: Normocephalic. EYES: without scleral icterus or trauma. ENT/OROPHARYNX: clear and moist. LYMPHADENOPATHY/NECK: Is supple without lymphadenopathy or meningismus. RESPIRATORY: Lungs clear and equal. CARDIOVASCULAR: Regular rate and rhythm. GI/ABDOMEN: Soft and tender in the epigastric and left upper quadrant. Mild tenderness left lower quadrant. No organomegaly or pulsatile mass. No rebound or guarding. Normal bowel sounds. EXTREMITIES: Warm and well perfused. BACK: No CVA tenderness. NEUROLOGICAL: Intact without focal deficits. PSYCHIATRIC: normal affect. MUSCULOSKELETAL: Normally developed with good muscle tone. Medical Decision & Procedures ER Provider Diagnostic Interpretation: Radiology results as stated below per my review and radiologist interpretation: ABDOMEN AND PELVIS CT WITH IV AND ORAL CONTRAST CT DOSE: 303.35 mGy.cm HISTORY: Acute generalized abdominal pain ABDOMINAL PAIN/GI TECHNIQUE: Multiaxial CT images of the abdomen and pelvis were performed following the use of intravenous and oral contrast. A dose lowering technique was utilized adhering to the principles of ALARA. COMPARISON STUDY: CT abdomen and pelvis 02/10/2016. FINDINGS: Mild subsegmental bibasilar atelectasis. There is no pneumatosis or pneumoperitoneum identified. Imaged inferior cardiac chambers are unremarkable. Prior cholecystectomy. Intrahepatic and extrahepatic biliary ductal dilation appears unchanged from prior study and is likely on a postsurgical basis with the common bile duct measuring up to 10 mm transversely. No obstructing biliary mass or stone identified. The liver otherwise appears unremarkable. Patent portal vein. Spleen, pancreas and adrenal glands are unremarkable. Kidneys, ureters and bladder are within normal limits. Coarse 7 mm calcification about the left mid uterine body. No adnexal mass lesions. Moderate mixed plaquing about the aorta without aneurysm. The IVC is unremarkable. There are no pathologically enlarged lymph nodes identified. There is no bowel obstruction or focal bowel wall thickening identified. Colonic diverticulosis without evidence of acute diverticulitis. Terminal ileum appears normal. Appendix is not definitively seen. No secondary signs to suggest acute appendicitis. No ascites or mesenteric inflammatory changes. Soft tissues appear to be within normal limits. Subcutaneous granulomata about the left gluteal tissues. Moderately demineralized appearance of the bones. Multilevel spondylitic spurring and facet arthropathy with intervertebral disc space narrowing. IMPRESSION: 1. No acute intra-abdominal or intrapelvic abnormality identified. 2. Colonic diverticulosis without diverticulitis. 3. Prior cholecystectomy with unchanged likely physiologic postsurgical intrahepatic and extrahepatic biliary ductal dilation. Electronically signed by: Troy Dolan M.D. 11/21/2017 11:19 AM Dictated Date/Time: 11/21/2017 11:13 AM CHEST ONE VIEW PORTABLE HISTORY: 72 years-old Female ABDOMINAL PAIN/GI acute atypical chest pain with acute generalized abdominal pain COMPARISON: Chest radiograph 08/26/2015 TECHNIQUE: Portable AP view of the chest FINDINGS: The cardiomediastinal and hilar silhouettes are within normal limits. The patient is slightly rotated to the right. Mild chronic interstitial coarsening with bibasilar pleural-parenchymal scarring. Opacity of the right lung apex appears unchanged suggesting a combination of scarring with pleural thickening. No pneumothorax, pleural effusion or overt pulmonary edema. Degenerative changes of the shoulders and spine. IMPRESSION: 1. No acute process. 2. Redemonstration of biapical pleural-parenchymal scarring with probable pleural thickening about the right lung apex, unchanged from 08/26/2015 The above report was generated using voice recognition software. It may contain grammatical, syntax or spelling errors. Electronically signed by: Troy Dolan M.D. 11/21/2017 9:16 AM Dictated Date/Time: 11/21/2017 9:13 AM Laboratory Results 11/21/17 08:25 Red Blood Count 4.55, Mean Corpuscular Volume 87.9, Mean Corpuscular Hemoglobin 28.8, Mean Corpuscular Hemoglobin Concent 32.8, Mean Platelet Volume 10.7, Neutrophils (%) (Auto) 57.7, Lymphocytes (%) (Auto) 25.2, Monocytes (%) (Auto) 10.9, Eosinophils (%) (Auto) 5.2, Basophils (%) (Auto) 0.8, Neutrophils # (Auto ) 2.87, Lymphocytes # (Auto) 1.25, Monocytes # (Auto) 0.54, Eosinophils # (Auto ) 0.26, Basophils # (Auto) 0.04 11/21/17 08:25 Test 11/21/17 08:20 11/21/17 08:25 Urine Color DK YELLOW Urine Appearance CLEAR (CLEAR) Urine pH 5.5 (4.5-7.5) Urine Specific [place] 1.023 (1.000-1.030) Urine Protein NEG (NEG) Urine Glucose (UA) NEG (NEG) Urine Ketones TRACE (NEG) Urine Occult Blood TRACE (NEG) Urine Nitrite NEG (NEG) Urine Bilirubin NEG (NEG) Urine Urobilinogen NEG (NEG) Urine Leukocyte Esterase MODERATE (NEG) Urine WBC (Auto) 10-30 /hpf (0-5) Urine RBC (Auto) 5-10 /hpf (0-4) Urine Hyaline Casts (Auto) 10-30 /lpf (0-5) Urine Epithelial Cells (Auto) >30 /lpf (0-5) Urine Bacteria (Auto) NEG (NEG) White Blood Count 4.97 K/uL (4.8-10.8) Red Blood Count 4.55 M/uL (4.2-5.4) Hemoglobin 13.1 g/dL (12.0-16.0) Hematocrit 40.0 % (37-47) Mean Corpuscular Volume 87.9 fL (80-100) Mean Corpuscular Hemoglobin 28.8 pg (25-34) Mean Corpuscular Hemoglobin Concent 32.8 g/dl (32-36) Platelet Count 267 K/uL (130-400) Mean Platelet Volume 10.7 fL (7.4-10.4) Neutrophils (%) (Auto) 57.7 % Lymphocytes (%) (Auto) 25.2 % Monocytes (%) (Auto) 10.9 % Eosinophils (%) (Auto) 5.2 % Basophils (%) (Auto) 0.8 % Neutrophils # (Auto) 2.87 K/uL (1.4-6.5) Lymphocytes # (Auto) 1.25 K/uL (1.2-3.4) Monocytes # (Auto) 0.54 K/uL (0.11-0.59) Eosinophils # (Auto) 0.26 K/uL (0-0.5) Basophils # (Auto) 0.04 K/uL (0-0.2) RDW Standard Deviation 47.3 fL (36.4-46.3) RDW Coefficient of Variation 14.7 % (11.5-14.5) Immature Granulocyte % (Auto) 0.2 % Immature Granulocyte # (Auto) 0.01 K/uL (0.00-0.02) Prothrombin Time 19.4 SECONDS (9.0-12.0) Prothromb Time International Ratio 1.9 (0.9-1.1) Activated Partial Thromboplast Time 40.1 SECONDS (21.0-31.0) Partial Thromboplastin Ratio 1.5 Anion Gap 6.0 mmol/L (3-11) Est Creatinine Clear Calc Drug Dose 62.7 ml/min Estimated GFR () 100.1 Estimated GFR (Non- 86.4 BUN/Creatinine Ratio 11.6 (10-20) Calcium Level 8.7 mg/dl (8.5-10.1) Total Bilirubin 0.5 mg/dl (0.2-1) Direct Bilirubin 0.2 mg/dl (0-0.2) Aspartate Amino Transf (AST/SGOT) 21 U/L (15-37) Alanine Aminotransferase (ALT/SGPT) 21 U/L (12-78) Alkaline Phosphatase 79 U/L (45-117) Total Protein 7.0 gm/dl (6.4-8.2) Albumin 3.4 gm/dl (3.4-5.0) Lipase 125 U/L (73-393) Laboratory results as stated above per my review. Medications Administered Medications (Trade) Dose Ordered Sig/Jeannine Route Start Time Stop Time Status Last Admin Dose Admin Sodium Chloride 1,000 ml @ 999 mls/hr Q1H1M STAT IV 11/21/17 08:44 11/21/17 09:44 DC 11/21/17 08:44 999 MLS/HR Ondansetron HCl (Zofran Inj) 4 mg NOW STAT IV 11/21/17 08:44 11/21/17 08:47 DC 11/21/17 08:44 4 MG Acetaminophen (Tylenol Tab) 1,000 mg NOW STAT PO 11/21/17 08:44 11/21/17 08:47 DC 11/21/17 08:44 1,000 MG Ceftriaxone Sodium (Rocephin Inj) 1 gm NOW STAT IV 11/21/17 11:39 11/21/17 11:41 DC 11/21/17 11:39 1 GM ED Course 0839: Previous medical records were reviewed. The patient was evaluated in room A10. A complete history and physical examination was performed. 0844: Ordered Tylenol 1000 mg PO, Zofran 4 mg IV, Sodium Chloride 1000 ml @ 999 mls/hr IV. 1139: Ordered Rocephin 1 gm IV. 1314: On reevaluation, the patient is resting in bed. I discussed the results and findings with the patient. She verbalized agreement of the treatment plan. The patient was discharged home. Medical Decision Differential considered: pancreatitis, hepatitis, AAA, UTI, pyelonephritis, kidney stones, appendicitis, diverticulitis, shingles, bowel obstruction mesenteric ischemia, intussusception,hernia, This is a 72-year-old female who presents to the ED with a chief complaint of abdominal pain. The patient, who has a history of cholecystectomy reports some right-sided abdominal pain Tuesday evening and then left-sided abdominal pain today. She states that she has not had any vomiting but did have some nausea. Her last bowel movement was yesterday. Further details are listed above. Her exam reveals some mild epigastric abdominal tenderness as well as tenderness in left upper quadrant. A CT scan of the abdomen and pelvis did not show acute process. A chest x-ray was negative for acute disease. CBC is normal, INR is 1.9, complete metabolic panel was normal and a lipase was negative. The urine is questionable for infection. The patient does report previous symptoms like this with UTIs. The patient was given IV Rocephin here. She was given IV fluids, IV Zofran and Tylenol p.o. She will be discharged on Bactrim. Blood Pressure Screening Patient's blood pressure: Normal blood pressure Blood pressure disposition: Elevated BP felt to be situational Impression Primary Impression: UTI (urinary tract infection) Additional Impression: Abdominal pain Scribe Attestation The scribe's documentation has been prepared under my direction and personally reviewed by me in its entirety. I confirm that the note above accurately reflects all work, treatment, procedures, and medical decision making performed by me. Departure Information Dispostion Home / Self-Care Prescriptions Sulfa/Trimethoprim (Bactrim Ds 800MG/160MG) Tab 1 TAB PO BID, #6 TAB Prov: Jason Fields D.O. 11/21/17 Referrals Oneil Tello III, M.D. (PCP) Patient Instructions My [facility] Additional Instructions Bactrim as prescribed for UTI. Follow-up with your doctor for further care and evaluation in 1-2 days. Return to the emergency department for worsening or new symptoms or any concerns. You have been examined and treated today on an emergency basis only. This is not a substitute for, or an effort to provide, complete comprehensive medical care. It is impossible to recognize and treat all injuries or illnesses in a single emergency department visit. It is therefore important that you follow up closely with your doctor. Call as soon as possible for an appointment. Problem Qualifiers
[2017-11-21 13:08] VITALS: BP 147/59; PULSE 63; O2SAT 99
== END 2017-11-21 13:22 | disposition home or self-care (01) ==
LOC: C.EDB 07:52 → C.EDA 13:22
DX: N39.0 Urinary tract infection, site not specified (principal); R10.9 Unspecified abdominal pain; I10 Essential (primary) hypertension; J44.9 Chronic obstructive pulmonary disease, unspecified; Z86.73 Personal history of transient ischemic attack (TIA), and cerebral infarction without residual deficits; Z86.711 Personal history of pulmonary embolism; Z79.01 Long term (current) use of anticoagulants; Z79.51 Long term (current) use of inhaled steroids; Z88.6 Allergy status to analgesic agent; Z88.8 Allergy status to other drugs, medicaments and biological substances; Z88.0 Allergy status to penicillin; Z90.49 Acquired absence of other specified parts of digestive tract; Z87.891 Personal history of nicotine dependence

== ENCOUNTER 2022-07-12 14:48 | Inpatient (IN) ==
[2022-07-12] MEDS ORDERED: ALBUT/IPRATROP 3MG/0.5MG NEB 3 ML VIAL NEB STA ×2 (15:02→16:27)
--- NOTE | 2022-07-12 15:18 | XRay Report ---
SINGLE VIEW CHEST CLINICAL HISTORY: Dyspnea FINDINGS: An AP, portable, upright chest radiograph is compared to study dated 04/30/2022. Correlation is made with chest CT dated 10/12/2013. The heart is top normal for projection noting atherosclerotic calcification of the thoracic aorta. Apical fibrosis is unchanged. Chronic interstitial thickening is similar to previous, as is bibasilar scarring/atelectasis. There is no airspace consolidation or lar ge pleural effusion. No pneumothorax is seen. The skeletal structures are osteopenic. The bony thorax is grossly intact. Cholecystectomy clips are noted in the right upper quadrant. IMPRESSION: No acute cardiopulmonary abnormality. ACT 112: Negative or not required by law. Electronically signed by: Alexander Parra M.D. 07/12/2022 3:16 PM
[2022-07-12 15:28] LABS: Basophils # (auto) 0.02 K/uL (0-0.2); Basophils % (auto) 0.2 %; Hematocrit (blood only) 37.8 % (37.0-47.0); Hemoglobin 13.1 g/dl (12.0-16.0); Immature Granulocytes # (auto) 0.07 K/uL (0.01-0.20); Immature Granulocytes % (auto) 0.6 %; Lymphocytes # (auto) 1.43 K/uL (1.2-3.4); Lymphocytes % (auto) 12.6 %; Mean Corpuscular Hemoglobin 29.3 pg (25.0-34.0); Mean Corpuscular Hgb Conc 34.7 g/dL (32.0-36.0); Mean Corpuscular Volume 84.6 fL (80.0-100.0); Mean Platelet Volume 11.3 fL (9.4-12.4); Monocytes # (auto) 0.74 K/uL (0.11-0.59); Monocytes % (auto) 6.5 %; Neutrophils # (auto) 9.12 K/uL (1.40-6.50); Neutrophils % (auto) 80.1 %; Platelet Count 212 K/uL (130-400); RDW Coefficient of Variation 14.1 % (11.5-14.5); RDW Standard Deviation 43.5 fL (36.4-46.3); Red Blood Count 4.47 M/uL (4.20-5.40); White Blood Count 11.38 K/ul (4.8-10.8)
--- NOTE | 2022-07-12 15:28 | Electrocardiogram Report ---
Test Reason : Blood Pressure : / mmHG Vent. Rate : 087 BPM Atrial Rate : 087 BPM P-R Int : 148 ms QRS Dur : 120 ms QT Int : 452 ms P-R-T Axes : 069 -27 068 degrees QTc Int : 543 ms Poor data quality, interpretation may be adversely affected Sinus rhythm with occasional Premature ventricular complexes Left bundle branch block Abnormal ECG When compared with ECG of 30-APR-2022 13:49, Premature ventricular complexes are now Present QRS duration has increased QT has lengthened Confirmed by Juan Rincon ([id number]) on 07/12/2022 3:27:43 PM Referred By: Confirmed By:Bobby Rincon
[2022-07-12 15:37] LABS: Base Excess VBG -0.4 mEq/L; HCO3 VBG 23 mmol/L; Oxygen Saturation VBG < 60.0 %; PCO2 VBG 33 mmHg (38-50); PO2 VBG 35 mmHg; pH VBG 7.45 (7.36-7.41)
[2022-07-12 15:42] LABS: Albumin Level 3.7 gm/dl (3.4-5.0); Bilirubin Direct 0.1 mg/dl (0-0.2); Bilirubin,Total 0.9 mg/dl (0.2-1.0); Calcium 8.1 mg/dl (8.5-10.1); Magnesium 1.9 mg/dl (1.7-2.4); Potassium 3.3 mmol/L (3.5-5.1)
[2022-07-12 15:49] LABS: BUN Creatinine Ratio 18.8 (10-20); Creatinine Clr Calc Pharmacy 62.3 ml/min; Est GFR (African American) 99.1 ml/min; Est GFR (Non-African American) 85.5 ml/min; Total Protein 6.9 gm/dl (6.0-8.3)
[2022-07-12 16:06] LABS: INR 1.9 (0.9-1.1); Partial Thromboplastin Ratio 1.7; Prothrombin Time 19.3 Seconds (9.0-12.0)
[2022-07-12 16:12] LABS: Partial Thromboplastin Time 46.2 Seconds (21.0-31.0)
--- NOTE | 2022-07-12 17:08 | Emergency Department Note ---
History of Present Illness General Chief Complaint: Illness Time Seen by Provider: 07/12/22 14:58 History of Present Illness Provider Complaint: shortness of breath Onset (ago): day(s) (3) Severity: severe Consistency/Duration: + progressively worsening Current Pain Intensity: 3 Relieved By: + bronchodilators Exacerbated By: + exertion and + coughing Context: + recent illness Known history of: COPD Associated symptoms: + cough, + wheezing and + chest congestion; no chest pain or no hemoptysis Treatment prior to arrival: bronchodilator HPI Narrative: When EMS arrived the patient had an oxygen saturation in the high 80s. EMS give the patient 1 DuoNeb and IV steroids. Patient's oxygen saturation improved status post these interventions prehospital Home Medications Medication Instructions Recorded Confirmed Type amlodipine 5 mg tablet 5 mg PO QAM 11/22/18 07/12/22 History citalopram 20 mg tablet 20 mg PO QAM 11/22/18 07/12/22 History warfarin 2.5 mg tablet See Rx Instructions .Route .COMPLEX 11/22/18 07/12/22 History famotidine 20 mg tablet 20 mg PO BID 11/08/19 07/12/22 History Allergies Allergy/AdvReac Type Severity Reaction Status Date / Time ketorolac Allergy Severe SOB, Verified 02/03/22 12:33 FACIAL SWELLING levofloxacin Allergy Intermediate THROAT Verified 02/03/22 12:33 SWELLING, NAUSEA Penicillins Allergy Intermediate RASH WITH Verified 02/03/22 12:33 BLISTERS sertraline Allergy Intermediate blister Verified 02/03/22 12:33 tromethamine Allergy Intermediate HIVES Verified 02/03/22 12:33 codeine Allergy Mild STOMACH Verified 02/03/22 12:33 BLEEDING tramadol Allergy Unknown muscle Verified 02/03/22 12:33 cramping diazepam AdvReac Intermediate SEIZURES Verified 02/03/22 12:33 aspirin AdvReac Mild TOLD NOT Verified 02/03/22 12:33 TO TAKE-ON COUMADIN morphine AdvReac Mild GI SYMPTOMS Verified 02/03/22 12:33 NSAIDS (Non-Steroidal AdvReac Mild TOLD NOT Verified 02/03/22 12:33 Anti-Inflamma TAKE-ON COUMADIN Past Med/Surg History Medical History (Updated 07/12/22 @ 17:08 by Viktor Stallings) Back pain Breast cancer (04/22/14) "Abnormal right breast mammogram Status post ultrasound-guided biopsy 04/22/2014 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, progesterone receptor positive, HER-2/krzysztof negative Status post right partial mastectomy and sentinel lymph node biopsy 07/02/2014 Stage [id number] Oncotype DX score 14 Status post completion of radiation therapy 10/02/2014 received 5000 cGy utilizing hypo-fractionation" On 10/04/14 17:34 Liberty Mendoza wrote "Abnormal right breast mammogram Status post ultrasound-guided biopsy 04/22/2014 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, progesterone receptor positive, HER-2/krzysztof negative Status post right partial mastectomy and sentinel lymph node biopsy 07/02/2014 Stage [id number] Oncotype DX score 14 Status post completion of radiation therapy 10/02/2014 received 5000 cGy utilizing hypo-fractionation" Bronchitis Chest pain COPD (chronic obstructive pulmonary disease) Factor V Leiden Hematuria History of pulmonary embolism History of TIA (transient ischemic attack) HTN (hypertension) Influenza A Left shoulder pain Scoliosis Sinusitis Surgical History Status post cataract extraction Status post cholecystectomy Status post tubal ligation Family History Other Family history non-contributory Social History Smoking Status: Never smoker Preferred Language: Thai marital status: Current Living Situation: Spouse current occupational status: retired Feels Safe at Home: Yes Physical Exam Vital Signs: Vital Signs - 24 hr 07/12/22 14:39 07/12/22 15:02 07/12/22 15:41 Temperature 37.1 C Temperature Source Oral Pulse Rate 104 H 83 Pulse Rate from Sp O2 Sensor Respiratory Rate 14 Respiratory Depth Normal Blood Pressure 111/65 Blood Pressure Janet n 80 Pulse Oximetry 94 Oxygen Delivery Me thod Room Air Room Air Oxygen Flow Rate Sepsis Recent Feve r Within 48 Hours No Sepsis New/Unexpla ined Change in Men radha Status No Sepsis Action Take n by Nursing No Action Required 07/12/22 16:24 07/12/22 16:25 07/12/22 15:21 Temperature Temperature Source Pulse Rate 84 Pulse Rate from Sp O2 Sensor 84 Respiratory Rate 13 Respiratory Depth Blood Pressure Blood Pressure Janet n Pulse Oximetry 89 L 96 97 Oxygen Delivery Me thod Room Air Nasal Cannula Oxygen Flow Rate 0 2 Sepsis Recent Feve r Within 48 Hours Sepsis New/Unexpla ined Change in Men radha Status Sepsis Action Take n by Nursing 07/12/22 15:30 07/12/22 16:00 Temperature Temperature Source Pulse Rate 85 79 Pulse Rate from Sp O2 Sensor 85 80 Respiratory Rate 16 21 Respiratory Depth Blood Pressure Blood Pressure Janet n Pulse Oximetry 93 91 Oxygen Delivery Me thod Room Air Oxygen Flow Rate Sepsis Recent Feve r Within 48 Hours Sepsis New/Unexpla ined Change in Men radha Status Sepsis Action Take n by Nursing Physical Exam: Physical Exam GENERAL: oriented to person, place, and time. appears well-developed and well- nourished. HENT: Exam performed. - Head: Normocephalic and atraumatic. EYES: Conjunctivae and EOM are normal. Right eye exhibits no discharge. Left eye exhibits no discharge. No scleral icterus. NECK: Normal range of motion. Neck supple. No JVD present. CV: Normal rate, regular rhythm, normal heart sounds and intact distal pulses. There is no peripheral edema. Palpable radial pulses bue. PULM/CHEST: Rales bilaterally. Rhonchi bilaterally. Expiratory wheezes bilaterally. ABD: The abdomen is soft. There is no tenderness. NEURO: Motor and sensation grossly intact. SKIN: Skin is warm and dry. He is not diaphoretic. PSYCH: normal mood and affect. Behavior is normal. Judgment and thought content normal. Course Course 1458: The patient was evaluated in room C4. A complete history and physical exam was performed Cardiac monitoring: An order was placed for continuous cardiac monitoring. The monitor shows a rate of 90 with sinus rhythm interpreted by me 1630: Patient becoming hypoxic on room air. Supplemental oxygen via nasal cannula was applied. Labs show a white blood cell count 11.38 INR 1.9 APTT of 46.2. VBG shows a venous pH of 7.45 with a venous PCO2 of 33. Potassium 3.3. BNP 186. Chest x-ray negative. Repeat DuoNebs ordered for the patient we will plan on admitting the patient to the [facility]ist team for COPD exacerbation. Patient continues to report no chest pain and reports that her breathing is better with supplemental oxygen. 1705: Lauryn Florian states to admit to Dr. Gibson. Administered Medications Discontinued Medications Albuterol (Albut/Ipratrop 3mg/0.5mg Neb 3 Ml Vial) 3 ml NEB NOW STA; Protocol Stop: 07/12/22 15:03 Last Admin: 07/12/22 15:15 Dose: 3 ml Documented By: MCKAYLA Albuterol (Albut/Ipratrop 3mg/0.5mg Neb 3 Ml Vial) 3 ml NEB NOW STA; Protocol Stop: 07/12/22 16:28 Last Admin: 07/12/22 16:38 Dose: 3 ml Documented By: JUAN Medical Decision Making Laboratory Data Attestation: I reviewed the patient's lab results. 07/12/22 14:53 07/12/22 14:53 Lab Results 07/12/22 07/12/22 07/12/22 Range/Units 14:53 14:53 14:53 WBC 11.38 H (4.8-10.8) K/ul RBC 4.47 (4.20-5.40) M/uL Hgb 13.1 (12.0-16.0) g/dl Hct 37.8 (37.0-47.0) % MCV 84.6 (80.0-100.0) fL MCH 29.3 (25.0-34.0) pg MCHC 34.7 (32.0-36.0) g/dL RDW Std Deviation 43.5 (36.4-46.3) fL RDW Coeff of Silvia 14.1 (11.5-14.5) % Plt Count 212 (130-400) K/uL MPV 11.3 (9.4-12.4) fL Immature Gran % (Auto) 0.6 % Neut % (Auto) 80.1 % Lymph % (Auto) 12.6 % [place] % (Auto) 6.5 % Eos % (Auto) 0.0 % Baso % (Auto) 0.2 % Neut # (Auto) 9.12 H (1.40-6.50) K/uL Lymph # (Auto) 1.43 (1.2-3.4) K/uL [place] # (Auto) 0.74 H (0.11-0.59) K/uL Eos # (Auto) 0.00 (0-0.50) K/uL Baso # (Auto) 0.02 (0-0.2) K/uL Immature Gran # (Auto) 0.07 (0.01-0.20) K/uL PT 19.3 H (9.0-12.0) Seconds INR 1.9 H (0.9-1.1) APTT 46.2 H* (21.0-31.0) Seconds PTT Ratio 1.7 VBG pH (7.36-7.41) VBG pCO2 (38-50) mmHg VBG pO2 mmHg VBG HCO3 mmol/L VBG O2 Saturation % VBG Base Excess mEq/L Sodium 131 L (136-145) mmol/L Potassium 3.3 L (3.5-5.1) mmol/L Chloride 99 (98-107) mmol/L Carbon Dioxide 23 (21-32) mmol/L Anion Gap 9 (3-11) BUN 12 (6-23) mg/dl Creatinine 0.64 (0.6-1.2) mg/dl Est Cr Clr Drug Dosing 62.3 ml/min Est GFR ( Amer) 99.1 ml/min Est GFR (Non-Af Amer) 85.5 ml/min BUN/Creatinine Ratio 18.8 (10-20) Glucose 95 (70-99(Fasting)) mg/dl Calcium 8.1 L (8.5-10.1) mg/dl Magnesium 1.9 (1.7-2.4) mg/dl Total Bilirubin 0.9 (0.2-1.0) mg/dl Direct Bilirubin 0.1 (0-0.2) mg/dl AST 20 (13-39) U/L ALT 11 (7-52) U/L Alkaline Phosphatase 65 (34-104) U/L B-Natriuretic Peptide (0-100) pg/ml Total Protein 6.9 (6.0-8.3) gm/dl Albumin 3.7 (3.4-5.0) gm/dl Lipase 19 (11-82) U/L SARS-CoV-2 (PCR) (Negative) 07/12/22 07/12/22 07/12/22 Range/Units 14:53 14:53 15:27 WBC (4.8-10.8) K/ul RBC (4.20-5.40) M/uL Hgb (12.0-16.0) g/dl Hct (37.0-47.0) % MCV (80.0-100.0) fL MCH (25.0-34.0) pg MCHC (32.0-36.0) g/dL RDW Std Deviation (36.4-46.3) fL RDW Coeff of Silvia (11.5-14.5) % Plt Count (130-400) K/uL MPV (9.4-12.4) fL Immature Gran % (Auto) % Neut % (Auto) % Lymph % (Auto) % [place] % (Auto) % Eos % (Auto) % Baso % (Auto) % Neut # (Auto) (1.40-6.50) K/uL Lymph # (Auto) (1.2-3.4) K/uL [place] # (Auto) (0.11-0.59) K/uL Eos # (Auto) (0-0.50) K/uL Baso # (Auto) (0-0.2) K/uL Immature Gran # (Auto) (0.01-0.20) K/uL PT (9.0-12.0) Seconds INR (0.9-1.1) APTT (21.0-31.0) Seconds PTT Ratio VBG pH 7.45 H (7.36-7.41) VBG pCO2 33 L (38-50) mmHg VBG pO2 35 mmHg VBG HCO3 23 mmol/L VBG O2 Saturation < 60.0 % VBG Base Excess -0.4 mEq/L Sodium (136-145) mmol/L Potassium (3.5-5.1) mmol/L Chloride (98-107) mmol/L Carbon Dioxide (21-32) mmol/L Anion Gap (3-11) BUN (6-23) mg/dl Creatinine (0.6-1.2) mg/dl Est Cr Clr Drug Dosing ml/min Est GFR ( Amer) ml/min Est GFR (Non-Af Amer) ml/min BUN/Creatinine Ratio (10-20) Glucose (70-99(Fasting)) mg/dl Calcium (8.5-10.1) mg/dl Magnesium (1.7-2.4) mg/dl Total Bilirubin (0.2-1.0) mg/dl Direct Bilirubin (0-0.2) mg/dl AST (13-39) U/L ALT (7-52) U/L Alkaline Phosphatase (34-104) U/L B-Natriuretic Peptide 186 H (0-100) pg/ml Total Protein (6.0-8.3) gm/dl Albumin (3.4-5.0) gm/dl Lipase Cancelled (11-82) U/L SARS-CoV-2 (PCR) (Negative) 07/12/22 Range/Units 15:29 WBC (4.8-10.8) K/ul RBC (4.20-5.40) M/uL Hgb (12.0-16.0) g/dl Hct (37.0-47.0) % MCV (80.0-100.0) fL MCH (25.0-34.0) pg MCHC (32.0-36.0) g/dL RDW Std Deviation (36.4-46.3) fL RDW Coeff of Silvia (11.5-14.5) % Plt Count (130-400) K/uL MPV (9.4-12.4) fL Immature Gran % (Auto) % Neut % (Auto) % Lymph % (Auto) % [place] % (Auto) % Eos % (Auto) % Baso % (Auto) % Neut # (Auto) (1.40-6.50) K/uL Lymph # (Auto) (1.2-3.4) K/uL [place] # (Auto) (0.11-0.59) K/uL Eos # (Auto) (0-0.50) K/uL Baso # (Auto) (0-0.2) K/uL Immature Gran # (Auto) (0.01-0.20) K/uL PT (9.0-12.0) Seconds INR (0.9-1.1) APTT (21.0-31.0) Seconds PTT Ratio VBG pH (7.36-7.41) VBG pCO2 (38-50) mmHg VBG pO2 mmHg VBG HCO3 mmol/L VBG O2 Saturation % VBG Base Excess mEq/L Sodium (136-145) mmol/L Potassium (3.5-5.1) mmol/L Chloride (98-107) mmol/L Carbon Dioxide (21-32) mmol/L Anion Gap (3-11) BUN (6-23) mg/dl Creatinine (0.6-1.2) mg/dl Est Cr Clr Drug Dosing ml/min Est GFR ( Amer) ml/min Est GFR (Non-Af Amer) ml/min BUN/Creatinine Ratio (10-20) Glucose (70-99(Fasting)) mg/dl Calcium (8.5-10.1) mg/dl Magnesium (1.7-2.4) mg/dl Total Bilirubin (0.2-1.0) mg/dl Direct Bilirubin (0-0.2) mg/dl AST (13-39) U/L ALT (7-52) U/L Alkaline Phosphatase (34-104) U/L B-Natriuretic Peptide (0-100) pg/ml Total Protein (6.0-8.3) gm/dl Albumin (3.4-5.0) gm/dl Lipase (11-82) U/L SARS-CoV-2 (PCR) NEGATIVE (Negative) Imaging Data Attestation: I personally reviewed and interpreted this imaging study as follows: My Impression: Chest x-ray: No acute infiltrate Radiologist's Impression: Chest X-Ray 07/12/22 15:02 SINGLE VIEW CHEST CLINICAL HISTORY: Dyspnea FINDINGS: An AP, portable, upright chest radiograph is compared to study dated 04/30/2022. Correlation is made with chest CT dated 10/12/2013. The heart is top no rmal for projection noting atherosclerotic calcification of the thoracic aorta. Apical fibrosis is unchanged. Chronic interstitial thickening is similar to previous, as is bibasilar scarring/atelectasis. There is no airspace consolidation or large pleural effusion. No pneumothorax is seen. The skeletal structures are osteopenic. The bony thorax is grossly intact. Cholecystectomy clips are noted in the right upper quadrant. IMPRESSION: No acute cardiopulmonary abnormality. ACT 112: Negative or not required by law. Electronically signed by: Alexander Parra M.D. 07/12/2022 3:16 PM ECG Data Attestation: I personally reviewed and interpreted this ECG as follows: Interpretation: Sinus rhythm with a rate of 87. Left bundle branch block present.sgarbosa negative [facility] Narrative 1458: The patient was evaluated in room C4. A complete history and physical exam was performed Cardiac monitoring: An order was placed for continuous cardiac monitoring. The monitor shows a rate of 90 with sinus rhythm interpreted by me 1630: Patient becoming hypoxic on room air. Supplemental oxygen via nasal cannula was applied. Labs show a white blood cell count 11.38 INR 1.9 APTT of 46.2. VBG shows a venous pH of 7.45 with a venous PCO2 of 33. Potassium 3.3. BNP 186. Chest x-ray negative. Repeat DuoNebs ordered for the patient we will plan on admitting the patient to the [facility] hospitalist team for COPD exacerbation. Patient continues to report no chest pain and reports that her breathing is better with supplemental oxygen. 1705: Lauryn Florian states to admit to Dr. Gibson. Impression & Plan Hypoxia, COPD exacerbation Critical Care Time Critical Care Time: Yes Total Critical Care Time: 50 I have personally spent greater than 50 minutes of critical care time in the direct management of this patient. This includes bedside care, interpretation of diagnostic studies, and testing, discussion with consultants, patient, and family members, and other required patient management activities. This 50 minutes is in excess of all separately billable procedures. Discharge Plan Visit Data Chief Complaint: Illness ED Provider: Viktor Stallings Discharge Problem: Hypoxia, COPD exacerbation Patient Disposition: Being Evaluated by Hospitalist Forms Stand Alone Forms: My [facility] [employer] Prescriptions Prescriptions: No Action warfarin 2.5 mg tablet See Rx Instructions .ROUTE .COMPLEX Rx Instructions: 2.5 mg orally TAKES 1.25 ON MONDAYS ONLY, THEN 2.5 MG ALL OTHER DAYS. or as directed by [facility]ult[facility] clinic amlodipine 5 mg tablet 5 mg PO QAM citalopram 20 mg tablet 20 mg PO QAM famotidine 20 mg Tablet 20 mg PO BID Referrals Referrals: Oneil Tello MD [Primary Care Provider] -
--- NOTE | 2022-07-12 17:59 | History & Physical Report ---
Date of Service July 12, 2022 Assessment & Plan (1) Acute respiratory failure with hypoxia: (2) COPD exacerbation: Plan: 77-year-old woman with history of COPD/asthma factor V Leiden, PE 2006, depression who presents with cough and shortness of breath that is worsened over the past 3 days Positive sick contact CXR did not show any acute abnormalities COVID test is negative. Get respiratory PCR Possible COPD/asthma exacerbation in the setting of URI Prednisone 40mg daily for 5 days Doxycycline 100mg bid Nebs prn Wean oxygen as tolerated No chest pain is likely related to coughing, will repeat EKG to get better tracing and get troponin (3) History of pulmonary embolism: (4) Factor V Leiden: Plan: INR is 1.9 today Per Anticoagulation clinic, patient is on 3.75mg on Mon and Thurs and 2.5mg other days Resume home warfarin dose Monitor INR (5) HTN (hypertension): Plan: Controlled Continue home amlodipine Continue home citalopram for depression DVT ppx - on warfarin I spent a total of 75 minutes coordinating, documenting and providing care for this patient excluding time spent in performance of separately billed services History of Present Illness Chief Complaint: Cough and shortness of breath Primary Care Provider: Oneil Tello MD 77-year-old woman with history of COPD/asthma factor V Leiden, PE 2006, depression who presents with cough and shortness of breath that is worsened over the past 3 days. Patient reported that she has been having cough productive of whitish sputum associated with shortness of breath, rhinorrhea, nasal congestion and sore throat. Reported that she had a little bit of chest pain with coughing earlier this morning but none at this time. Reported feeling warm but did not record temp Reported she felt like she was going to pass out with the coughing Denied chills. Reported some nausea but no vomiting. Reported she had some abdominal discomfort earlier with the coughing episodes. Denied diarrhea, constipation, melena hematochezia Denied palpitation Denied frequency, urgency, hematuria Reported granddaughter who lives with her has been sick with respiratory symptoms. Patient reports she is active and walks independently Was not on oxygen at home Denies smoking, alcohol or illicit drug use. Reports adherence to medications Allergies Allergy/AdvReac Type Severity Reaction Status Date / Time ketorolac Allergy Severe SOB, Verified 02/03/22 12:33 FACIAL SWELLING levofloxacin Allergy Intermediate THROAT Verified 02/03/22 12:33 SWELLING, NAUSEA Penicillins Allergy Intermediate RASH WITH Verified 02/03/22 12:33 BLISTERS sertraline Allergy Intermediate blister Verified 02/03/22 12:33 tromethamine Allergy Intermediate HIVES Verified 02/03/22 12:33 codeine Allergy Mild STOMACH Verified 02/03/22 12:33 BLEEDING tramadol Allergy Unknown muscle Verified 02/03/22 12:33 cramping diazepam AdvReac Intermediate SEIZURES Verified 02/03/22 12:33 aspirin AdvReac Mild TOLD NOT Verified 02/03/22 12:33 TO TAKE-ON COUMADIN morphine AdvReac Mild GI SYMPTOMS Verified 02/03/22 12:33 NSAIDS (Non-Steroidal AdvReac Mild TOLD NOT Verified 02/03/22 12:33 Anti-Inflamma TAKE-ON COUMADIN Home Medications Medication Instructions Recorded Confirmed Type amlodipine 5 mg tablet 5 mg PO QAM 11/22/18 07/12/22 History citalopram 20 mg tablet 20 mg PO QAM 11/22/18 07/12/22 History warfarin 2.5 mg tablet See Rx Instructions .Route .COMPLEX 11/22/18 07/12/22 History Past Med/Surg History Medical History (Updated 07/12/22 @ 18:26 by Paige Moore MD) Back pain Breast cancer (04/22/14) "Abnormal right breast mammogram Status post ultrasound-guided biopsy 04/22/2014 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, progesterone receptor positive, HER-2/krzysztof negative Status post right partial mastectomy and sentinel lymph node biopsy 07/02/2014 Stage [id number] Oncotype DX score 14 Status post completion of radiation therapy 10/02/2014 received 5000 cGy utilizing hypo-fractionation" On 10/04/14 17:34 Liberty Mendoza wrote "Abnormal right breast mammogram Status post ultrasound-guided biopsy 04/22/2014 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, progesterone receptor positive, HER-2/krzysztof negative Status post right partial mastectomy and sentinel lymph node biopsy 07/02/2014 Stage [id number] Oncotype DX score 14 Status post completion of radiation therapy 10/02/2014 received 5000 cGy utilizing hypo-fractionation" Bronchitis Chest pain COPD (chronic obstructive pulmonary disease) Factor V Leiden Hematuria History of pulmonary embolism History of TIA (transient ischemic attack) HTN (hypertension) Influenza A Left shoulder pain Scoliosis Sinusitis Surgical History Status post cataract extraction Status post cholecystectomy Status post tubal ligation Family History Other Family history non-contributory Social History Smoking Status: Never smoker Preferred Language: Guamanian marital status: Current Living Situation: Spouse current occupational status: retired Feels Safe at Home: Yes Review of Systems Review of Systems: All systems reviewed & are unremarkable except as noted in HPI & below Physical Exam Constitutional: + well hydrated; no acute distress Elderly woman Eyes: PERRL, conjunctivae normal, anicteric sclerae ENMT: external ear and nose normal, oropharynx normal Respiratory: normal respiratory effort; no respiratory distress On nasal cannula, scattered rhonchi especially in the left lung Cardiovascular: Rate/Rhythm: regular rate and regular rhythm S1-S2 Gastrointestinal (Abdomen): normal bowel sounds, soft, nontender, no hepatosplenomegaly Musculoskeletal: no cyanosis or clubbing, extremities motor strength 5/5 No pedal edema Neurologic: PERRL, EOMI, accommodation nl, no face palsy, no dysarthria Psychiatric: A+Ox3, euthymic affect Results & Data Results & Data Vital Signs (Past 12 Hours) Vital Signs Temp Pulse Resp BP Pulse Ox O2 Del Method O2 Flow Rate 07/12/22 17:00 98 H 26 H 94 Nasal Cannula 2 07/12/22 16:30 82 19 95 07/12/22 16:00 79 21 91 Room Air 07/12/22 15:30 85 16 93 07/12/22 15:21 84 13 97 07/12/22 16:25 96 Nasal Cannula 2 07/12/22 16:24 89 L Room Air 0 07/12/22 15:41 83 07/12/22 15:02 Room Air 07/12/22 14:39 37.1 C 104 H 14 111/65 94 Room Air Laboratory Results Laboratory Results - last 24 hr 07/12/22 07/12/22 07/12/22 14:53 14:53 14:53 WBC 11.38 H RBC 4.47 Hgb 13.1 Hct 37.8 MCV 84.6 MCH 29.3 MCHC 34.7 RDW Std Deviation 43.5 RDW Coeff of Silvia 14.1 Plt Count 212 MPV 11.3 Immature Gran % (Auto) 0.6 Neut % (Auto) 80.1 Lymph % (Auto) 12.6 [place] % (Auto) 6.5 Eos % (Auto) 0.0 Baso % (Auto) 0.2 Neut # (Auto) 9.12 H Lymph # (Auto) 1.43 [place] # (Auto) 0.74 H Eos # (Auto) 0.00 Baso # (Auto) 0.02 Immature Gran # (Auto) 0.07 PT 19.3 H INR 1.9 H APTT 46.2 H* PTT Ratio 1.7 VBG pH VBG pCO2 VBG pO2 VBG HCO3 VBG O2 Saturation VBG Base Excess Sodium 131 L Potassium 3.3 L Chloride 99 Carbon Dioxide 23 Anion Gap 9 BUN 12 Creatinine 0.64 Est Cr Clr Drug Dosing 62.3 Est GFR ( Amer) 99.1 Est GFR (Non-Af Amer) 85.5 BUN/Creatinine Ratio 18.8 Glucose 95 Calcium 8.1 L Magnesium 1.9 Total Bilirubin 0.9 Direct Bilirubin 0.1 AST 20 ALT 11 Alkaline Phosphatase 65 B-Natriuretic Peptide Total Protein 6.9 Albumin 3.7 Lipase 19 SARS-CoV-2 (PCR) 07/12/22 07/12/22 07/12/22 14:53 14:53 15:27 WBC RBC Hgb Hct MCV MCH MCHC RDW Std Deviation RDW Coeff of Silvia Plt Count MPV Immature Gran % (Auto) Neut % (Auto) Lymph % (Auto) [place] % (Auto) Eos % (Auto) Baso % (Auto) Neut # (Auto) Lymph # (Auto) [place] # (Auto) Eos # (Auto) Baso # (Auto) Immature Gran # (Auto) PT INR APTT PTT Ratio VBG pH 7.45 H VBG pCO2 33 L VBG pO2 35 VBG HCO3 23 VBG O2 Saturation < 60.0 VBG Base Excess -0.4 Sodium Potassium Chloride Carbon Dioxide Anion Gap BUN Creatinine Est Cr Clr Drug Dosing Est GFR ( Amer) Est GFR (Non-Af Amer) BUN/Creatinine Ratio Glucose Calcium Magnesium Total Bilirubin Direct Bilirubin AST ALT Alkaline Phosphatase B-Natriuretic Peptide 186 H Total Protein Albumin Lipase Cancelled SARS-CoV-2 (PCR) 07/12/22 15:29 WBC RBC Hgb Hct MCV MCH MCHC RDW Std Deviation RDW Coeff of Silvia Plt Count MPV Immature Gran % (Auto) Neut % (Auto) Lymph % (Auto) [place] % (Auto) Eos % (Auto) Baso % (Auto) Neut # (Auto) Lymph # (Auto) [place] # (Auto) Eos # (Auto) Baso # (Auto) Immature Gran # (Auto) PT INR APTT PTT Ratio VBG pH VBG pCO2 VBG pO2 VBG HCO3 VBG O2 Saturation VBG Base Excess Sodium Potassium Chloride Carbon Dioxide Anion Gap BUN Creatinine Est Cr Clr Drug Dosing Est GFR ( Amer) Est GFR (Non-Af Amer) BUN/Creatinine Ratio Glucose Calcium Magnesium Total Bilirubin Direct Bilirubin AST ALT Alkaline Phosphatase B-Natriuretic Peptide Total Protein Albumin Lipase SARS-CoV-2 (PCR) NEGATIVE Diagnostic Findings SINGLE VIEW CHEST CLINICAL HISTORY: Dyspnea FINDINGS: An AP, portable, upright chest radiograph is compared to study dated 04/30/2022. Correlation is made with chest CT dated 10/12/2013. The heart is top normal for projection noting atherosclerotic calcification of the thoracic aorta. Apical fibrosis is unchanged. Chronic interstitial thickening is similar to previous, as is bibasilar scarring/atelectasis. There is no airspace consolidation or large pleural effusion. No pneumothorax is seen. The skeletal structures are osteopenic. The bony thorax is grossly intact. Cholecystectomy clips are noted in the right upper quadrant. IMPRESSION: No acute cardiopulmonary abnormality. Code Status & VTE Plan VTE Prophylaxis Plan VTE Prophylaxis will be ordered: Yes
[2022-07-12] MEDS ORDERED: POLYETHYLENE (MIRALAX) 17 GM PACK PO PRN (18:52)
[2022-07-12] MEDS ORDERED: ONDANSETRON INJ 2 MG/ML 2 ML VIAL IV PRN (18:52)
[2022-07-12] MEDS ORDERED: ACETAMINOPHEN 325 MG TAB PO PRN (18:52)
[2022-07-12] MEDS ORDERED: predniSONE 20 MG TAB PO STA (18:52)
[2022-07-12] MEDS ORDERED: LORATADINE 10 MG TAB PO ONE (18:52)
[2022-07-12] MEDS: DOXYCYCLINE HYCLATE 100 MG CAP PO SCH (19:56)
[2022-07-12] MEDS: guaiFENesin 600 MG TABCR PO SCH (20:11)
[2022-07-13 00:20] LABS: Adenovirus PCR Not Detected (NotDetected); Bordetella parapertussis PCR Not Detected (NotDetected); Bordetella pertussis PCR Not Detected (NotDetected); Chlamydia pneumoniae PCR Not Detected (NotDetected); Coronavirus 229E PCR Not Detected (NotDetected); Coronavirus CoV-2 (COVID19)PCR Not Detected (NotDetected); Coronavirus HKU1 PCR Not Detected (NotDetected); Coronavirus NL63 PCR Not Detected (NotDetected); Coronavirus OC43PCR Not Detected (NotDetected); Influenza A PCR Not Detected (NotDetected); Influenza B PCR Not Detected (NotDetected); Mycoplasma pneumoniae PCR Not Detected (NotDetected); Parainfluenza Virus 1 PCR Not Detected (NotDetected); Parainfluenza Virus 2 PCR Not Detected (NotDetected); Parainfluenza Virus 3 PCR Not Detected (NotDetected); Parainfluenza Virus 4 PCR Not Detected (NotDetected); Respiratory Syncytial VirusPCR Not Detected (NotDetected); Rhinovirus/Enterovirus PCR Not Detected (NotDetected)
[2022-07-13 01:24] LABS: Human Metapneumovirus PCR DETECTED (NotDetected)
[2022-07-13] MEDS: guaiFENesin 600 MG TABCR PO SCH ×2 (08:02→20:54)
[2022-07-13] MEDS: DOXYCYCLINE HYCLATE 100 MG CAP PO SCH ×2 (08:02→20:54)
[2022-07-13] MEDS: CITALOPRAM 20 MG TAB PO SCH (08:02)
[2022-07-13] MEDS: predniSONE 20 MG TAB PO SCH (08:02)
[2022-07-13] MEDS: LORATADINE 10 MG TAB PO SCH (08:02)
[2022-07-13] MEDS: amLODIPine BESYLATE 5 MG TAB PO SCH (08:03)
[2022-07-13 08:16] LABS: Hematocrit (blood only) 37.1 % (37.0-47.0); Hemoglobin 13.2 g/dl (12.0-16.0); Mean Corpuscular Hemoglobin 29.5 pg (25.0-34.0); Mean Corpuscular Hgb Conc 35.6 g/dL (32.0-36.0); Mean Corpuscular Volume 82.8 fL (80.0-100.0); Mean Platelet Volume 10.7 fL (9.4-12.4); Platelet Count 214 K/uL (130-400); RDW Coefficient of Variation 14.1 % (11.5-14.5); RDW Standard Deviation 42.6 fL (36.4-46.3); Red Blood Count 4.48 M/uL (4.20-5.40); White Blood Count 9.18 K/ul (4.8-10.8)
[2022-07-13 08:36] LABS: BUN Creatinine Ratio 26.7 (10-20); Calcium 8.6 mg/dl (8.5-10.1); Est GFR (African American) 101.2 ml/min; Est GFR (Non-African American) 87.3 ml/min; Potassium 3.5 mmol/L (3.5-5.1)
[2022-07-13 08:47] LABS: INR 1.9 (0.9-1.1); Prothrombin Time 19.9 Seconds (9.0-12.0)
[2022-07-13] MEDS ORDERED: BENZONATATE 100 MG CAPSULE PO PRN (10:03)
--- NOTE | 2022-07-13 11:02 | Hospitalist Progress Note ---
Date of Service July 13, 2022 Assessment & Plan (1) Acute respiratory failure with hypoxia: (2) COPD exacerbation: Plan: 77-year-old woman with history of COPD/asthma factor V Leiden, PE 2005, depression who presents with cough and shortness of breath that is worsened over the past 3 days Positive sick contact CXR did not show any acute abnormalities COVID test is negative. Resp PCR showed Human Metapneumovirus Possible COPD/asthma exacerbation in the setting of URI Continue Prednisone 40mg daily for 5 days Continue Doxycycline 100mg bid Nebs prn Wean oxygen as tolerated Incentive spirometer Continue loratadine, guaifenesin Add tessalon perrles prn EKG showed left bundle branch block which is not new as it is documented in her outpatient records Normal troponin (3) History of pulmonary embolism: (4) Factor V Leiden: Plan: INR is 1.9 today Per Anticoagulation clinic, patient is on 3.75mg on Mon and Thurs and 2.5mg other days Continue home warfarin dose Monitor INR (5) HTN (hypertension): Plan: Controlled Continue home amlodipine Continue home citalopram for depression Replete hypokalemia DVT ppx - on warfarin I spent a total of 40 minutes coordinating, documenting and providing care for this patient excluding time spent in performance of separately billed services Admission and Anticipated Discharge Date Admission Date: July 12, 2022 Subjective Patient seen and examined. Reports feeling little bit better today. Still reports cough. Denies shortness of breath at this time. Reports some congestion and sore throat Currently on nasal oxygen 2 L/min with oxygen saturation 92%. Denies any chest pain today Denies nausea, vomiting, abdominal pain, diarrhea Denies any headache or dizziness Physical Exam Constitutional: + well hydrated; no acute distress Eyes: PERRL, conjunctivae normal, anicteric sclerae ENMT: external ear and nose normal, oropharynx normal Respiratory: normal respiratory effort; no respiratory distress Scattered rhonchi On nasal cannula 2 L/min Cardiovascular: Rate/Rhythm: regular rate and regular rhythm S1-S2 Gastrointestinal (Abdomen): normal bowel sounds, soft, nontender, no hepatosplenomegaly Musculoskeletal: no cyanosis or clubbing, extremities motor strength 5/5 Neurologic: PERRL, EOMI, accommodation nl, no face palsy, no dysarthria Psychiatric: A+Ox3, euthymic affect Results & Data Results & Data Vital Signs (Past 12 Hours) Vital Signs Temp Pulse Pulse Resp BP Pulse Ox O2 Del Method 07/13/22 08:52 Nasal Cannula 07/13/22 07:37 61 07/13/22 07:20 36.6 C 74 22 148/75 H 92 Nasal Cannula 07/13/22 00:00 73 07/13/22 04:00 36.4 C L 67 20 130/78 94 Nasal Cannula 07/12/22 23:00 36.4 C L 74 20 125/78 95 Nasal Cannula O2 Flow Rate 07/13/22 08:52 2 07/13/22 07:37 07/13/22 07:20 2 07/13/22 00:00 07/13/22 04:00 2 07/12/22 23:00 2 Laboratory Results Abnormal lab results 07/12/22 07/12/22 07/12/22 Range/Units 14:53 14:53 14:53 WBC 11.38 H (4.8-10.8) K/ul Neut # (Auto) 9.12 H (1.40-6.50) K/uL [place] # (Auto) 0.74 H (0.11-0.59) K/uL PT 19.3 H (9.0-12.0) Seconds INR 1.9 H (0.9-1.1) APTT 46.2 H* (21.0-31.0) Seconds VBG pH (7.36-7.41) VBG pCO2 (38-50) mmHg Sodium 131 L (136-145) mmol/L Potassium 3.3 L (3.5-5.1) mmol/L BUN/Creatinine Ratio (10-20) Glucose (70-99(Fasting)) mg/dl Calcium 8.1 L (8.5-10.1) mg/dl B-Natriuretic Peptide (0-100) pg/ml Human Metapneumovir PCR (NotDetected) 07/12/22 07/12/22 07/12/22 Range/Units 14:53 15:27 15:29 WBC (4.8-10.8) K/ul Neut # (Auto) (1.40-6.50) K/uL [place] # (Auto) (0.11-0.59) K/uL PT (9.0-12.0) Seconds INR (0.9-1.1) APTT (21.0-31.0) Seconds VBG pH 7.45 H (7.36-7.41) VBG pCO2 33 L (38-50) mmHg Sodium (136-145) mmol/L Potassium (3.5-5.1) mmol/L BUN/Creatinine Ratio (10-20) Glucose (70-99(Fasting)) mg/dl Calcium (8.5-10.1) mg/dl B-Natriuretic Peptide 186 H (0-100) pg/ml Human Metapneumovir PCR DETECTED A* (NotDetected) 07/13/22 07/13/22 Range/Units 07:47 07:47 WBC (4.8-10.8) K/ul Neut # (Auto) (1.40-6.50) K/uL [place] # (Auto) (0.11-0.59) K/uL PT 19.9 H (9.0-12.0) Seconds INR 1.9 H (0.9-1.1) APTT (21.0-31.0) Seconds VBG pH (7.36-7.41) VBG pCO2 (38-50) mmHg Sodium 134 L (136-145) mmol/L Potassium (3.5-5.1) mmol/L BUN/Creatinine Ratio 26.7 H (10-20) Glucose 142 H (70-99(Fasting)) mg/dl Calcium (8.5-10.1) mg/dl B-Natriuretic Peptide (0-100) pg/ml Human Metapneumovir PCR (NotDetected)
[2022-07-13] MEDS: WARFARIN SOD 2.5 MG TAB PO SCH (16:33)
[2022-07-14 06:56] LABS: Hematocrit (blood only) 35.7 % (37.0-47.0); Hemoglobin 12.6 g/dl (12.0-16.0); Mean Corpuscular Hemoglobin 29.5 pg (25.0-34.0); Mean Corpuscular Hgb Conc 35.3 g/dL (32.0-36.0); Mean Corpuscular Volume 83.6 fL (80.0-100.0); Mean Platelet Volume 11.1 fL (9.4-12.4); Platelet Count 251 K/uL (130-400); RDW Coefficient of Variation 14.3 % (11.5-14.5); RDW Standard Deviation 43.8 fL (36.4-46.3); Red Blood Count 4.27 M/uL (4.20-5.40); White Blood Count 10.09 K/ul (4.8-10.8)
[2022-07-14 07:24] LABS: BUN Creatinine Ratio 31.7 (10-20); Calcium 8.6 mg/dl (8.5-10.1); Creatinine Clr Calc Pharmacy 61.7 ml/min; Est GFR (African American) 101.2 ml/min; Est GFR (Non-African American) 87.3 ml/min; Potassium 3.5 mmol/L (3.5-5.1)
[2022-07-14 07:33] LABS: INR 2.7 (0.9-1.1)
[2022-07-14] MEDS: amLODIPine BESYLATE 5 MG TAB PO SCH (08:26)
[2022-07-14] MEDS: DOXYCYCLINE HYCLATE 100 MG CAP PO SCH ×2 (08:26→21:18)
[2022-07-14] MEDS: guaiFENesin 600 MG TABCR PO SCH (08:26)
[2022-07-14] MEDS: CITALOPRAM 20 MG TAB PO SCH (08:26)
[2022-07-14] MEDS: predniSONE 20 MG TAB PO SCH (08:27)
[2022-07-14] MEDS: LORATADINE 10 MG TAB PO SCH (08:54)
[2022-07-14] MEDS: guaiFENesin SUGAR FREE 200 MG/10 ML UDC PO SCH ×3 (10:09→21:18)
[2022-07-14] MEDS: WARFARIN SOD 2.5 MG TAB PO SCH (16:19)
--- NOTE | 2022-07-14 19:42 | Hospitalist Progress Note ---
Date of Service July 14, 2022 Assessment & Plan (1) Acute respiratory failure with hypoxia: (2) COPD exacerbation: Plan: 77-year-old woman with history of COPD/asthma factor V Leiden, PE 2005, depression who presents with cough and shortness of breath that is worsened over the past 3 days Positive sick contact CXR did not show any acute abnormalities COVID test is negative. Resp PCR showed Human Metapneumovirus Possible COPD/asthma exacerbation in the setting of URI Continue Prednisone 40mg daily for 5 days Continue Doxycycline 100mg bid Nebs prn Wean oxygen as tolerated Incentive spirometer Continue loratadine, guaifenesin and tessalon perles prn Will get 2 step exercise before discharge (3) History of pulmonary embolism: (4) Factor V Leiden: Plan: INR is 2.7 today Per Anticoagulation clinic, patient is on 3.75mg on Mon and Thurs and 2.5mg other days Continue home warfarin dose Monitor INR (5) HTN (hypertension): Plan: Controlled Continue home amlodipine LBBB EKG showed left bundle branch block which is not new as it is documented in her outpatient records Normal troponin Denies any chest pain Continue home citalopram for depression Replete hypokalemia DVT ppx - on warfarin I spent a total of 40 minutes coordinating, documenting and providing care for this patient excluding time spent in performance of separately billed services Admission and Anticipated Discharge Date Admission Date: July 12, 2022 Subjective Patient seen and examined for SOB Lying in bed with no acute distress She said that she feels a little better today Pt was very emotional during the encounter while talking about her daughter and son Denies any chest pain, palpitation, dizziness and SOB Review of Systems Review of Systems: All systems reviewed & are unremarkable except as noted in Subjective Physical Exam Physical Exam: General- No acute distress Head- atraumatic Eyes- PERRL, EOMI, ENT- oropharynx clear Neck- supple, no JVD Lungs- +Diminished BS Heart- regular rhythm; no murmur Abdomen- normal bowel sounds, soft, nontender Extremities- no calf tenderness Neuro- alert, oriented x 3; PERRL, EOMI; no facial palsy; no dysarthria Skin- warm & dry Results & Data Results & Data Vital Signs (Past 12 Hours) Vital Signs Temp Pulse Pulse Resp BP Pulse Ox O2 Del Method 07/14/22 16:35 63 07/14/22 15:29 88 07/14/22 15:26 36.7 C 81 16 122/71 93 Nasal Cannula 07/14/22 11:25 36.7 C 83 17 133/64 91 Nasal Cannula 07/14/22 10:46 Nasal Cannula 07/14/22 08:20 36.6 C 81 18 134/80 91 Nasal Cannula O2 Flow Rate 07/14/22 16:35 07/14/22 15:29 07/14/22 15:26 3 07/14/22 11:25 3 07/14/22 10:46 2 07/14/22 08:20 2
[2022-07-15] MEDS: guaiFENesin SUGAR FREE 200 MG/10 ML UDC PO SCH ×3 (06:24→21:07)
[2022-07-15 07:35] LABS: INR 4.3 (0.9-1.1)
[2022-07-15] MEDS: predniSONE 20 MG TAB PO SCH (09:45)
[2022-07-15] MEDS: LORATADINE 10 MG TAB PO SCH (09:45)
[2022-07-15] MEDS: DOXYCYCLINE HYCLATE 100 MG CAP PO SCH ×2 (09:45→21:07)
[2022-07-15] MEDS: CITALOPRAM 20 MG TAB PO SCH (09:45)
[2022-07-15] MEDS: amLODIPine BESYLATE 5 MG TAB PO SCH (09:46)
[2022-07-15] MEDS: ALBUT/IPRATROP 3MG/0.5MG NEB 3 ML VIAL NEB PRN (10:09)
[2022-07-15] MEDS ORDERED: WARFARIN SOD 1.25 MG TAB PO SCH (16:00)
--- NOTE | 2022-07-15 23:00 | Hospitalist Progress Note ---
Date of Service July 15, 2022 Assessment & Plan (1) Acute respiratory failure with hypoxia: (2) COPD exacerbation: Plan: 77-year-old woman with history of COPD/asthma factor V Leiden, PE 2005, depression who presents with cough and shortness of breath that is worsened over the past 3 days Positive sick contact CXR did not show any acute abnormalities COVID test is negative. Resp PCR showed Human Metapneumovirus Possible COPD/asthma exacerbation in the setting of URI Continue Prednisone 40mg daily for 5 days Continue Doxycycline 100mg bid Nebs prn Wean oxygen as tolerated Incentive spirometer Continue loratadine, guaifenesin and tessalon perles prn Will get 2 step exercise before discharge (3) History of pulmonary embolism: (4) Factor V Leiden: Plan: INR is 4.3 today Per Anticoagulation clinic, patient is on 3.75mg on Mon and Thurs and 2.5mg other days warfarin on hold due to supratherapeutic INR Monitor INR Supratherapeutic INR INR above 4 No sign of bleeding Continue to hold coumadin Monitor PT/INR (5) HTN (hypertension): Plan: Controlled Continue home amlodipine LBBB EKG showed left bundle branch block which is not new as it is documented in her outpatient records Normal troponin Denies any chest pain Continue home citalopram for depression Replete hypokalemia DVT ppx - hold warfarin since INR 4.3 today I spent a total of 40 minutes coordinating, documenting and providing care for this patient excluding time spent in performance of separately billed services Admission and Anticipated Discharge Date Admission Date: July 12, 2022 Subjective Patient seen and examined for SOB Lying in bed with no acute distress She said that she feels a little better today Denies any chest pain, palpitation, dizziness and SOB Review of Systems Review of Systems: All systems reviewed & are unremarkable except as noted in Subjective Physical Exam Physical Exam: General- No acute distress Head- atraumatic Eyes- PERRL, EOMI, ENT- oropharynx clear Neck- supple, no JVD Lungs- +Diminished BS Heart- regular rhythm; no murmur Abdomen- normal bowel sounds, soft, nontender Extremities- no calf tenderness Neuro- alert, oriented x 3; PERRL, EOMI; no facial palsy; no dysarthria Skin- warm & dry Results & Data Results & Data Vital Signs (Past 12 Hours) Vital Signs Temp Pulse Pulse Resp BP Pulse Ox O2 Del Method 07/15/22 20:00 Nasal Cannula 07/15/22 20:00 36.7 C 76 18 135/77 92 Nasal Cannula 07/15/22 17:00 85 07/15/22 15:39 36.8 C 75 20 136/67 92 Nasal Cannula 07/15/22 11:12 36.7 C 79 18 132/70 90 Nasal Cannula O2 Flow Rate 07/15/22 20:00 3 07/15/22 20:00 3 07/15/22 17:00 07/15/22 15:39 3 07/15/22 11:12 3
[2022-07-16] MEDS: guaiFENesin SUGAR FREE 200 MG/10 ML UDC PO SCH ×3 (05:52→22:03)
[2022-07-16 08:03] LABS: INR 4.7 (0.9-1.1); Prothrombin Time 46.4 Seconds (9.0-12.0)
[2022-07-16] MEDS: DOXYCYCLINE HYCLATE 100 MG CAP PO SCH ×2 (09:46→22:04)
[2022-07-16] MEDS: predniSONE 20 MG TAB PO SCH (09:46)
[2022-07-16] MEDS: CITALOPRAM 20 MG TAB PO SCH (09:46)
[2022-07-16] MEDS: LORATADINE 10 MG TAB PO SCH (09:46)
[2022-07-16] MEDS: amLODIPine BESYLATE 5 MG TAB PO SCH (09:46)
--- NOTE | 2022-07-16 17:04 | Hospitalist Progress Note ---
Date of Service July 16, 2022 Assessment & Plan (1) Acute respiratory failure with hypoxia: (2) COPD exacerbation: Plan: 77-year-old woman with history of COPD/asthma factor V Leiden, PE 2005, depression who presents with cough and shortness of breath that is worsened over the past 3 days Positive sick contact CXR did not show any acute abnormalities COVID test is negative. Resp PCR showed Human Metapneumovirus Possible COPD/asthma exacerbation in the setting of URI Continue Prednisone 40mg daily for 5 days Continue Doxycycline 100mg bid Nebs prn Wean oxygen as tolerated Incentive spirometer and flutter valve Continue loratadine, guaifenesin and tessalon perles prn Will get 2 step exercise before discharge (3) History of pulmonary embolism: (4) Factor V Leiden: Plan: INR is 4.7 today Per Anticoagulation clinic, patient is on 3.75mg on Mon and Thurs and 2.5mg other days warfarin on hold due to supratherapeutic INR Monitor INR Supratherapeutic INR INR 4.7 today No sign of bleeding Continue to hold coumadin Monitor PT/INR (5) HTN (hypertension): Plan: Controlled Continue home amlodipine LBBB EKG showed left bundle branch block which is not new as it is documented in her outpatient records Normal troponin Denies any chest pain Depression Continue home depression DVT ppx - hold warfarin since INR 4.7 today I spent a total of 40 minutes coordinating, documenting and providing care for this patient excluding time spent in performance of separately billed services Admission and Anticipated Discharge Date Admission Date: July 12, 2022 Subjective Patient seen and examined for follow up of SOB due to COPD exacerbation Lying in bed with no acute distress with granddaughter and sister at bedside She said that she feels a little better today Denies any chest pain, palpitation, dizziness and SOB Review of Systems Review of Systems: All systems reviewed & are unremarkable except as noted in Subjective Physical Exam Physical Exam: General- No acute distress Head- atraumatic Eyes- PERRL, EOMI, ENT- oropharynx clear Neck- supple, no JVD Lungs- +Diminished BS Heart- regular rhythm; no murmur Abdomen- normal bowel sounds, soft, nontender Extremities- no calf tenderness Neuro- alert, oriented x 3; PERRL, EOMI; no facial palsy; no dysarthria Skin- warm & dry Results & Data Results & Data Vital Signs (Past 12 Hours) Vital Signs Temp Pulse Pulse Resp BP BP Pulse Ox 07/16/22 16:17 79 07/16/22 14:00 07/16/22 16:00 07/16/22 09:30 07/16/22 14:41 36.8 C 85 20 152/80 H 94 07/16/22 08:00 62 07/16/22 11:04 36.6 C 78 20 150/75 H 91 07/16/22 09:47 92 07/16/22 07:21 36.7 C 70 18 151/82 H 90 Pulse Ox O2 Del Method O2 Del Method O2 Flow Rate O2 Flow Rate 07/16/22 16:17 07/16/22 14:00 Nasal Cannula 2 07/16/22 16:00 92 Nasal Cannula 2 07/16/22 09:30 Nasal Cannula 3 07/16/22 14:41 Nasal Cannula 2 07/16/22 08:00 07/16/22 11:04 Nasal Cannula 3 07/16/22 09:47 07/16/22 07:21 Nasal Cannula 3
[2022-07-16] MEDS: SODIUM CHLOR 7% 4 ML NEB NEB SCH (19:04)
[2022-07-17] MEDS: guaiFENesin SUGAR FREE 200 MG/10 ML UDC PO SCH ×3 (07:13→21:44)
[2022-07-17] MEDS: ALBUT/IPRATROP 3MG/0.5MG NEB 3 ML VIAL NEB PRN ×2 (07:21→19:31)
[2022-07-17] MEDS: SODIUM CHLOR 7% 4 ML NEB NEB SCH ×2 (07:21→19:31)
[2022-07-17 07:44] LABS: BUN Creatinine Ratio 21.7 (10-20); Calcium 8.1 mg/dl (8.6-10.3); Creatinine Clr Calc Pharmacy 60.7 ml/min; Est GFR (African American) 101.2 ml/min; Est GFR (Non-African American) 87.3 ml/min; Potassium 3.6 mmol/L (3.5-5.1)
[2022-07-17 07:47] LABS: INR 3.5 (0.9-1.1); Prothrombin Time 34.6 Seconds (9.0-12.0)
[2022-07-17] MEDS: CITALOPRAM 20 MG TAB PO SCH (08:10)
[2022-07-17] MEDS: LORATADINE 10 MG TAB PO SCH (08:10)
[2022-07-17] MEDS: amLODIPine BESYLATE 5 MG TAB PO SCH (08:10)
[2022-07-17] MEDS: predniSONE 20 MG TAB PO SCH (08:10)
[2022-07-17] MEDS: DOXYCYCLINE HYCLATE 100 MG CAP PO SCH (08:11)
--- NOTE | 2022-07-17 17:59 | Hospitalist Progress Note ---
Date of Service July 17, 2022 Assessment & Plan (1) Acute respiratory failure with hypoxia: (2) COPD exacerbation: Plan: 77-year-old woman with history of COPD/asthma factor V Leiden, PE 2005, depression who presents with cough and shortness of breath that is worsened over the past 3 days Positive sick contact CXR did not show any acute abnormalities COVID test is negative. Resp PCR showed Human Metapneumovirus Possible COPD/asthma exacerbation in the setting of URI Continue Prednisone 40mg daily for 5 days Continue Doxycycline 100mg bid Continue neb treatment Wean oxygen as tolerated Incentive spirometer and flutter valve Continue loratadine, guaifenesin and tessalon perles prn Will get 2 step exercise before discharge (3) History of pulmonary embolism: (4) Factor V Leiden: Plan: INR is 4.7 today Per Anticoagulation clinic, patient is on 3.75mg on Mon and Thurs and 2.5mg other days warfarin on hold due to supratherapeutic INR, will resume today Monitor INR Supratherapeutic INR INR 3.5 today No sign of bleeding Will resume coumadin today Monitor PT/INR (5) HTN (hypertension): Plan: Controlled Continue home amlodipine LBBB EKG showed left bundle branch block which is not new as it is documented in her outpatient records Normal troponin Denies any chest pain Depression Continue home depression DVT ppx - Will warfarin since INR 3.5 today I spent a total of 40 minutes coordinating, documenting and providing care for this patient excluding time spent in performance of separately billed services Admission and Anticipated Discharge Date Admission Date: July 12, 2022 Subjective Patient seen and examined for follow up of SOB due to COPD exacerbation Lying in bed with no acute distress She said that she feels a little better today She continues to require oxygen supplement Denies any chest pain, palpitation, dizziness and SOB Review of Systems Review of Systems: All systems reviewed & are unremarkable except as noted in Subjective Physical Exam Physical Exam: General- No acute distress Head- atraumatic Eyes- PERRL, EOMI, ENT- oropharynx clear Neck- supple, no JVD Lungs- +Diminished BS Heart- regular rhythm; no murmur Abdomen- normal bowel sounds, soft, nontender Extremities- no calf tenderness Neuro- alert, oriented x 3; PERRL, EOMI; no facial palsy; no dysarthria Skin- warm & dry Results & Data Results & Data Vital Signs (Past 12 Hours) Vital Signs Temp Pulse Pulse Resp BP Pulse Ox O2 Del Method 07/17/22 15:31 37.0 C 83 20 153/80 H 91 Nasal Cannula 07/17/22 15:23 74 07/17/22 11:09 36.7 C 87 20 151/81 H 90 Nasal Cannula 07/17/22 08:58 Nasal Cannula 07/17/22 07:21 87 18 92 Nasal Cannula 07/17/22 07:12 36.7 C 69 20 154/80 H 88 L Nasal Cannula 07/17/22 07:06 68 O2 Flow Rate 07/17/22 15:31 2 07/17/22 15:23 07/17/22 11:09 2 07/17/22 08:58 2 07/17/22 07:21 3 07/17/22 07:12 3 07/17/22 07:06
[2022-07-17] MEDS ORDERED: WARFARIN SOD 2.5 MG TAB PO ONE (18:15)
[2022-07-18] MEDS: guaiFENesin SUGAR FREE 200 MG/10 ML UDC PO SCH ×2 (06:25→12:36)
[2022-07-18] MEDS: SODIUM CHLOR 7% 4 ML NEB NEB SCH (07:06)
[2022-07-18] MEDS: LORATADINE 10 MG TAB PO SCH (07:43)
[2022-07-18] MEDS: predniSONE 20 MG TAB PO SCH (07:43)
[2022-07-18] MEDS: CITALOPRAM 20 MG TAB PO SCH (07:44)
[2022-07-18] MEDS: amLODIPine BESYLATE 5 MG TAB PO SCH (07:44)
[2022-07-18 07:59] LABS: INR 2.6 (0.9-1.1); Prothrombin Time 25.9 Seconds (9.0-12.0)
[2022-07-18] MEDS ORDERED: WARFARIN SOD 2.5 MG TAB PO ONE (16:00)
--- NOTE | 2022-07-18 16:23 | Discharge Summary ---
Date of Service July 18, 2022 Admission HPI Per Admitting Provider 77-year-old woman with history of COPD/asthma factor V Leiden, PE 2006, depression who presents with cough and shortness of breath that is worsened over the past 3 days. Patient reported that she has been having cough productive of whitish sputum associated with shortness of breath, rhinorrhea, nasal congestion and sore throat. Reported that she had a little bit of chest pain with coughing earlier this morning but none at this time. Reported feeling warm but did not record temp Reported she felt like she was going to pass out with the coughing Denied chills. Reported some nausea but no vomiting. Reported she had some abdominal discomfort earlier with the coughing episodes. Denied diarrhea, constipation, melena hematochezia Denied palpitation Denied frequency, urgency, hematuria Reported granddaughter who lives with her has been sick with respiratory symptoms. Patient reports she is active and walks independently Was not on oxygen at home Denies smoking, alcohol or illicit drug use. Reports adherence to medications Admission Exam Per Admitting Provider Constitutional: + well hydrated; no acute distressElderly woman Eyes: PERRL, conjunctivae normal, anicteric sclerae ENMT: external ear and nose normal, oropharynx normal E Respiratory: normal respiratory effort; no respiratory distress On nasal cannula, scattered rhonchi especially in the left lung Cardiovascular: Rate/Rhythm: regular rate and regular rhythm S1-S2 Gastrointestinal (Abdomen): normal bowel sounds, soft, nontender, no hepatosplenomegaly Musculoskeletal: no cyanosis or clubbing, extremities motor strength 5/5 No pedal edema Neurologic: PERRL, EOMI, accommodation nl, no face palsy, no dysarthria Psychiatric: A+Ox3, euthymic affect Principal Diagnosis Acute respiratory failure with hypoxia: COPD exacerbation: History of pulmonary embolism: Factor V Leiden: Supratherapeutic INR Hypertension LBBB Depression Discharge Exam General- No acute distress Head- atraumatic Eyes- PERRL, EOMI, ENT- oropharynx clear Neck- supple, no JVD Lungs- +Diminished BS Heart- regular rhythm; no murmur Abdomen- normal bowel sounds, soft, nontender Extremities- no calf tenderness Neuro- alert, oriented x 3; PERRL, EOMI; no facial palsy; no dysarthria Skin- warm & dry Discharge Data Allergies Allergy/AdvReac Type Severity Reaction Status Date / Time ketorolac Allergy Severe SOB, Verified 02/03/22 12:33 FACIAL SWELLING levofloxacin Allergy Intermediate THROAT Verified 02/03/22 12:33 SWELLING, NAUSEA Penicillins Allergy Intermediate RASH WITH Verified 02/03/22 12:33 BLISTERS sertraline Allergy Intermediate blister Verified 02/03/22 12:33 tromethamine Allergy Intermediate HIVES Verified 02/03/22 12:33 codeine Allergy Mild STOMACH Verified 02/03/22 12:33 BLEEDING tramadol Allergy Unknown muscle Verified 02/03/22 12:33 cramping diazepam AdvReac Intermediate SEIZURES Verified 02/03/22 12:33 aspirin AdvReac Mild TOLD NOT Verified 02/03/22 12:33 TO TAKE-ON COUMADIN morphine AdvReac Mild GI SYMPTOMS Verified 02/03/22 12:33 NSAIDS (Non-Steroidal AdvReac Mild TOLD NOT Verified 02/03/22 12:33 Anti-Inflamma TAKE-ON COUMADIN Ordered Studies Laboratory Results WBC 10.09 K/ul (4.8-10.8) 07/14/22 06:34 RBC 4.27 M/uL (4.20-5.40) 07/14/22 06:34 Hgb 12.6 g/dl (12.0-16.0) 07/14/22 06:34 Hct 35.7 % (37.0-47.0) L 07/14/22 06:34 MCV 83.6 fL (80.0-100.0) 07/14/22 06:34 MCH 29.5 pg (25.0-34.0) 07/14/22 06:34 MCHC 35.3 g/dL (32.0-36.0) 07/14/22 06:34 RDW Std Deviation 43.8 fL (36.4-46.3) 07/14/22 06:34 RDW Coeff of Silvia 14.3 % (11.5-14.5) 07/14/22 06:34 Plt Count 251 K/uL (130-400) 07/14/22 06:34 MPV 11.1 fL (9.4-12.4) 07/14/22 06:34 Immature Gran % (Auto) 0.6 % 07/12/22 14:53 Neut % (Auto) 80.1 % 07/12/22 14:53 Lymph % (Auto) 12.6 % 07/12/22 14:53 Webster % (Auto) 6.5 % 07/12/22 14:53 Eos % (Auto) 0.0 % 07/12/22 14:53 Baso % (Auto) 0.2 % 07/12/22 14:53 Neut # (Auto) 9.12 K/uL (1.40-6.50) H 07/12/22 14:53 Lymph # (Auto) 1.43 K/uL (1.2-3.4) 07/12/22 14:53 Webster # (Auto) 0.74 K/uL (0.11-0.59) H 07/12/22 14:53 Eos # (Auto) 0.00 K/uL (0-0.50) 07/12/22 14:53 Baso # (Auto) 0.02 K/uL (0-0.2) 07/12/22 14:53 Immature Gran # (Auto) 0.07 K/uL (0.01-0.20) 07/12/22 14:53 PT 25.9 Seconds (9.0-12.0) H 07/18/22 07:14 INR 2.6 (0.9-1.1) H 07/18/22 07:14 APTT 46.2 Seconds (21.0-31.0) H* 07/12/22 14:53 PTT Ratio 1.7 07/12/22 14:53 VBG pH 7.45 (7.36-7.41) H 07/12/22 15:27 VBG pCO2 33 mmHg (38-50) L 07/12/22 15:27 VBG pO2 35 mmHg 07/12/22 15:27 VBG HCO3 23 mmol/L 07/12/22 15:27 VBG O2 Saturation < 60.0 % 07/12/22 15:27 VBG Base Excess -0.4 mEq/L 07/12/22 15:27 Sodium 139 mmol/L (136-145) 07/17/22 06:51 Potassium 3.6 mmol/L (3.5-5.1) 07/17/22 06:51 Chloride 106 mmol/L (98-107) 07/17/22 06:51 Carbon Dioxide 27 mmol/L (21-32) 07/17/22 06:51 Anion Gap 6 (3-11) 07/17/22 06:51 BUN 13 mg/dl (6-23) 07/17/22 06:51 Creatinine 0.60 mg/dl (0.6-1.2) 07/17/22 06:51 Est Cr Clr Drug Dosing 60.7 ml/min 07/17/22 06:51 Est GFR ( Amer) 101.2 ml/min 07/17/22 06:51 Est GFR (Non-Af Amer) 87.3 ml/min 07/17/22 06:51 BUN/Creatinine Ratio 21.7 (10-20) H 07/17/22 06:51 Glucose 88 mg/dl (70-99(Fasting)) 07/17/22 06:51 Calcium 8.1 mg/dl (8.6-10.3) L 07/17/22 06:51 Magnesium 1.9 mg/dl (1.7-2.4) 07/12/22 14:53 Total Bilirubin 0.9 mg/dl (0.2-1.0) 07/12/22 14:53 Direct Bilirubin 0.1 mg/dl (0-0.2) 07/12/22 14:53 AST 20 U/L (13-39) 07/12/22 14:53 ALT 11 U/L (7-52) 07/12/22 14:53 Alkaline Phosphatase 65 U/L (34-104) 07/12/22 14:53 Troponin I High Sens 7.9 pg/ml (0-14) 07/12/22 18:37 B-Natriuretic Peptide 186 pg/ml (0-100) H 07/12/22 14:53 Total Protein 6.9 gm/dl (6.0-8.3) 07/12/22 14:53 Albumin 3.7 gm/dl (3.4-5.0) 07/12/22 14:53 Lipase 19 U/L (11-82) 07/12/22 14:53 Lipase Cancelled 07/12/22 14:53 Adenovirus (PCR) Not Detected (NotDetected) 07/12/22 15:29 B. pertussis DNA (PCR) Not Detected (NotDetected) 07/12/22 15:29 B.parapertussis DNA PCR Not Detected (NotDetected) 07/12/22 15:29 C. pneumoniae DNA (PCR) Not Detected (NotDetected) 07/12/22 15:29 Coronavirus OC43 (PCR) Not Detected (NotDetected) 07/12/22 15:29 Coronavirus HKU1 (PCR) Not Detected (NotDetected) 07/12/22 15:29 Coronavirus 229E (PCR) Not Detected (NotDetected) 07/12/22 15:29 SARS-CoV-2 (PCR) NEGATIVE (Negative) 07/12/22 15:29 SARS-CoV-2 (PCR) Not Detected (NotDetected) 07/12/22 15:29 Coronavirus NL63 (PCR) Not Detected (NotDetected) 07/12/22 15:29 Human Metapneumovir PCR DETECTED (NotDetected) A* 07/12/22 15:29 Influenza Type A (PCR) Not Detected (NotDetected) 07/12/22 15:29 Influenza Type B (PCR) Not Detected (NotDetected) 07/12/22 15:29 M. pneumoniae (PCR) Not Detected (NotDetected) 07/12/22 15:29 Parainfluenza 1 (PCR) Not Detected (NotDetected) 07/12/22 15:29 Parainfluenza 2 (PCR) Not Detected (NotDetected) 07/12/22 15:29 Parainfluenza 3 (PCR) Not Detected (NotDetected) 07/12/22 15:29 Parainfluenza 4 (PCR) Not Detected (NotDetected) 07/12/22 15:29 RSV (PCR) Not Detected (NotDetected) 07/12/22 15:29 Entero/Rhino (PCR) Not Detected (NotDetected) 07/12/22 15:29 Impressions Chest X-Ray 07/12/22 15:02 SINGLE VIEW CHEST CLINICAL HISTORY: Dyspnea FINDINGS: An AP, portable, upright chest radiograph is compared to study dated 04/30/2022. Correlation is made with chest CT dated 10/12/2013. The heart is top normal for projection noting atherosclerotic calcification of the thoracic aorta. Apical fibrosis is unchanged. Chronic interstitial thickening is similar to previous, as is bibasilar scarring/atelectasis. There is no airspace consolidation or large pleural effusion. No pneumothorax is seen. The skeletal structures are osteopenic. The bony thorax is grossly intact. Cholecystectomy clips are noted in the right upper quadrant. IMPRESSION: No acute cardiopulmonary abnormality. ACT 112: Negative or not required by law. Electronically signed by: Alexander Parra M.D. 07/12/2022 3:16 PM Hospital Course (1) Acute respiratory failure with hypoxia: (2) COPD exacerbation: 77-year-old woman with history of COPD/asthma factor V Leiden, PE 2005, depression who presents with cough and shortness of breath that is worsened over the past 3 days Positive sick contact CXR did not show any acute abnormalities COVID test is negative. Resp PCR showed Human Metapneumovirus Possible COPD/asthma exacerbation in the setting of URI Continue Prednisone 40mg daily for 5 days Completed course of Doxycycline 100mg bid Continue neb treatment, script given for nebulizer machine Wean oxygen as tolerated Incentive spirometer and flutter valve Continue loratadine, guaifenesin and tessalon perles prn 2 step exercise done and pt does not require any oxygen supplement (3) History of pulmonary embolism: (4) Factor V Leiden: INR is 4.7 today Per Anticoagulation clinic, patient is on 3.75mg on Mon and Thurs and 2.5mg other days warfarin on hold due to supratherapeutic INR Continue coumadin Monitor INR Supratherapeutic INR INR 2.6 today No sign of bleeding Follow up with the coumadin clinic Monitor PT/INR (5) HTN (hypertension): Controlled Continue home amlodipine LBBB EKG showed left bundle branch block which is not new as it is documented in her outpatient records Normal troponin Denies any chest pain Depression Continue home depression DVT ppx - Will warfarin since INR 2.6 today I spent a total of 40 minutes coordinating, documenting and providing care for this patient excluding time spent in performance of separately billed services Total Time Total Time Spent Total Time Spent (In Minutes): 40 minutes Discharge Plan Discharge Items Patient Disposition: Home - Home Health Services Reason For Visit: COPD EXACERBATION, HYPOXIA Discharge Diagnosis: Acute respiratory failure with hypoxia: COPD exacerbation: History of pulmonary embolism: Factor V Leiden: Supratherapeutic INR Activity: Resume your previous activity Non-emergency contact: Primary Care Provider Call non-emergency contact if: you have any medication questions Follow-up/Referrals: Oneil Tello MD [Primary Care Provider] - (Date & Time 07/22/2022 11:00 AM Provider Oneil Tello III, MD Department [facility] ) Diet: Heart Healthy Diet Comment: Minced and moist diet Addtl Attending Provider Instructions: Follow up with your primary care provider 07/22/2022 @ 11:00 AM Oneil Tello III, MD Department [facility] Follow up with the Coumadin clinic to monitor your PT/INR Continue incentive spirometry and flutter valve Fall precaution Seek medical attention if you develop any shortness of breath Pending Studies at Discharge: No Stand-Alone Forms: My [facility] [place], Smoking Cessation Medications and DC Order Prescriptions: New prednisone 20 mg Tablet 20 mg PO DAILY 3 Days Qty: 3 0RF guaifenesin 200 mg tablet 200 mg PO TID Qty: 21 0RF ipratropium-albuterol 0.5 mg-3 mg(2.5 mg base)/3 mL solution for nebulization 3 ml inhalation Q8H PRN (Reason: wheezing) Qty: 90 0RF Continued warfarin 2.5 mg tablet See Rx Instructions .ROUTE .COMPLEX Rx Instructions: 2.5 mg orally TAKES 1.25 ON MONDAYS ONLY, THEN 2.5 MG ALL OTHER DAYS. or as directed by coagultaion clinic amlodipine 5 mg tablet 5 mg PO QAM citalopram 20 mg tablet 20 mg PO QAM Discharge Orders: Discharge Order (Routine); Ordered 07/18/22 Ordered By: Elvie Barahona Admission Data Admit Date/Time: 07/12/22 17:06 Attending Provider: Elvie Barahona Admit Provider: Paige Moore I. Primary Care Provider: Oneil Tello Other Providers: Paige Moore I. ; [facility] Other Interventions: Discharge Summary Assessment (RN) Last Done: 07/18/22 13:44
== END 2022-07-18 16:53 | disposition home health service (06) | DRG 189 ==
LOC: ED 14:48 → SUATTDRO 17:06 → 2N 17:06 → 2W 07-13 21:04